=== PATIENT | male | born 1950 | race African-American/Black ===

== ENCOUNTER 2017-03-28 12:00 | Inpatient (IN) ==
[2017-03-28] MEDS ORDERED: GLUCAGON 1 MG VIAL IM PRN (17:11)
[2017-03-28] MEDS ORDERED: DEXTROSE 50% 25 GM/50 ML VIAL IV PRN (17:11)
[2017-03-28] MEDS: HEPARIN DRIP 25,000 UNITS/500 ML PREMIX IV SCH (18:01)
[2017-03-28 18:29] LABS: Partial Thromboplastin Time 32.2 SECS (0-40)
[2017-03-28] MEDS ORDERED: MECLIZINE 25 MG TABLET PO PRN (18:46)
--- NOTE | 2017-03-28 18:59 | XRay Report ---
XR chest 1V portable Indication: Preop respiratory evaluation. Chest one view: Heart size is upper limits normal, and mediastinal contour are normal. Lungs are hypoinflated but generally clear, except for minimal bibasilar atelectasis. Pleural spaces are clear. Bones are intact. Impression: Mild pulmonary hypoinflation with atelectasis. Borderline cardiomegaly. PROCEDURE INTERPRETED AT [facility] DEPARTMENT OF RADIOLOGY Final Report Signed by: Solo Herr M.D.
[2017-03-28] MEDS: MELOXICAM 7.5 MG TABLET PO SCH (21:21)
[2017-03-28] MEDS: INSULIN REGULAR 100 UNIT/ML SUBCUT SCH (21:21)
[2017-03-28] MEDS: CARVEDILOL 3.125 MG TABLET PO SCH (21:21)
--- NOTE | 2017-03-28 21:26 | Ultrasound Report ---
US venous doppler LE BI Indication: Shortness of breath. BILATERAL LOWER EXTREMITY VENOUS ULTRASOUND Comparison: None Findings: Graded grayscale compression, color Doppler and pulsed Doppler ultrasound evaluation of the venous structures performed. Normal compressibility, augmentation and color saturation is present throughout the left common femoral, superficial femoral, popliteal and proximal greater saphenous veins. Normal features are also present throughout the right common femoral vein and most of the right superficial femoral vein. In the distal superficial femoral vein there is eccentric thrombus present in the right popliteal vein is completely occluded. Impression: DVT distal right superficial femoral vein and popliteal vein. Comment: Painter discussed preliminary findings with nurse Lola Gonzalez at 0 hours. PROCEDURE INTERPRETED AT [facility] DEPARTMENT OF RADIOLOGY Final Report Signed by: Solo Herr M.D.
[2017-03-29 01:00] LABS: Basophils # 0.1 10*3/uL (0.0-0.2); Basophils % 0.6 % (0.0-0.8); Eosinophils # 0.3 10*3/uL (0.0-0.87); Eosinophils % 3.1 % (0.00-10.9); Hematocrit 38.8 VOL% (42.0-52.0); Immature Granulocytes % 0.5 %; Immature Granulocytes Absolute 0.04 #; Lymphocytes # 1.7 10*3/uL (1.4-4.0); Lymphocytes % 19.8 % (21.2-54.2); Mean Corpuscular HGB Conc 33.5 GM/DL (32-36); Mean Corpuscular Hemoglobin 31 PG (27-34); Mean Corpuscular Volume 91.1 FL (87-102); Mean Platelet Volume 8.8 FL (9.6-12.0); Monocytes # 1.1 10*3/uL (0.11-0.8); Monocytes % 13.3 % (1.7-12.7); Neutrophils # 5.3 10*3/uL (1.4-7.4); Neutrophils % 62.7 % (38.7-73.9); Platelet Count 220 T/CUMM (130-400); Red Blood Count 4.26 MC/CUMM (3.8-5.5); Red Cell Distribution Width 12.4 % (9.3-17.3); White Blood Count 8.4 T/CUMM (4-12)
[2017-03-29 02:09] LABS: Albumin 3.2 G/DL (3.4-5.0); Bilirubin,Total 0.5 MG/DL (0.2-1.0); Calcium 8.4 MG/DL (8.5-10.1); Potassium 4.1 MMOL/L (3.5-5.1); Total Protein 5.9 G/DL (6.4-8.3)
[2017-03-29] MEDS: INSULIN REGULAR 100 UNIT/ML SUBCUT SCH ×4 (08:06→21:04)
[2017-03-29] MEDS: INSULIN NPH/REGULAR 70/30 100 UNIT/ML SUBCUT SCH ×2 (08:38→17:34)
[2017-03-29] MEDS: LISINOPRIL 10 MG TABLET PO SCH (08:39)
[2017-03-29] MEDS: MELOXICAM 7.5 MG TABLET PO SCH ×2 (08:39→21:03)
[2017-03-29] MEDS: ASPIRIN CHEW 81 MG TABLET PO SCH (08:39)
[2017-03-29] MEDS: CARVEDILOL 3.125 MG TABLET PO SCH ×2 (08:39→21:03)
[2017-03-29] MEDS: PANTOPRAZOLE 20 MG TABLET PO SCH (08:39)
--- NOTE | 2017-03-29 08:50 | EKG Report ---
Stationary ECG Study [facility] Test Date: 03/29/2017 7:23:38 AM Pat Name: GRETEL TOMPKISN Department: Room: 110 Gender: M Press Manager: ROEL : 1950 Requested by: Justyn Manning Order Number: [id number] Reading MD: NYLA SOUZA Intervals [place] Rate: 81 P: 46 SC: 186 QRS: 10 QRSD: 100 T: 7 QT: 402 QTc: 439 Interpretive Statements SINUS RHYTHM NONSPECIFIC T-WAVE ABNORMALITY Electronically Signed On 03-30-17 08:08:00 CDT by NYLA SOUZA [email or web address]
--- NOTE | 2017-03-29 14:05 | Cardiothoracic History & Phys ---
Assessment and Plan - Time spent with patient Time spent with patient: Greater than 30 minutes (1) NSTEMI (non-ST elevated myocardial infarction) Status: Acute Assessment and plan: Risk Model and Variables - STS Adult Cardiac Surgery Database Version 2.81 RISK SCORES About the STS Risk Calculator Procedure: CAB Only Risk of Mortality: 2.748% Morbidity or Mortality: 34.97% Long Length of Stay: 18.977% Short Length of Stay: 18.124% Permanent Stroke: 2.094% Prolonged Ventilation: 25.048% DSW Infection: 2.297% Renal Failure: 16.673% Reoperation: 66-year-old male with non-ST elevation myocardial infarction. Risks benefits and alternatives of coronary artery bypass surgery was discussed with the patient and the family and they understand and they are willing to proceed. I transferred the patient here from [place] and I started him on heparin drip for his DVT as well as his non-ST elevation myocardial infarction. I am planning to do surgery on Friday, March 31, 2017. Current Visit: Yes History of Present Illness Chief complaint: NSTEMI History of present illness: Mr. Renner is a 66 year old male who has been having shortness of breath for the past few weeks and has been increasing. He denies any previous similar episodes. The patient had a cardiac cath at [place] showing severe multivessel coronary artery disease with Right coroanry artery completely occluded, LAD, RAMUS and Circ tight occlusion. The pt also was noted to have RLE DVT. I transferred the pt here to perform his CABG Home Medications Medication Instructions Recorded Confirmed Type Aspirin [Ecotrin] 81 mg PO DAILY 03/28/17 03/28/17 History Carvedilol [Carvedilol] 3.125 mg PO BID 03/28/17 03/28/17 History Hydrocodone/Acetaminophen 7.5 mg PO Q4H PRN 03/28/17 03/28/17 History [Hydrocodon-Acetaminoph 7.5-325] Insulin NPH/Regular 70/30 [HumuLIN 36 units SUBCUT QPM 03/28/17 03/28/17 History 70/30] Insulin NPH/Regular 70/30 [HumuLIN 46 units SUBCUT AC BREAKFAST 03/28/17 History 70/30] Lisinopril [Lisinopril] 10 mg PO DAILY 03/28/17 03/28/17 History Lovastatin [Lovastatin] 10 mg PO DAILY W/SUPPER 03/28/17 03/28/17 History Meclizine [Antivert] 25 mg PO DAILY PRN 03/28/17 03/28/17 History Meloxicam [Meloxicam] 7.5 mg PO BID 03/28/17 03/28/17 History Omeprazole 20 mg PO DAILY 03/28/17 03/28/17 History Rivaroxaban [Xarelto] 20 mg PO DAILY 03/28/17 03/28/17 History Allergies Allergy/AdvReac Type Severity Reaction Status Date / Time No Known Allergies Allergy Unverified 03/28/17 15:29 12 point system: reviewed and no additional remarkable complaints except as stated (HPI) Medical,Surgical,& Family Hx - Medical History Cardio: History of: CHF, CAD, Hypertension, PVD, Cardiovascular Problems Endocrine: History of: Diabetes Mellitus (IDDM) Musculoskeletal: History of: Amputation (half of Left foot) Hematology: History of: Clotting Problems (currrent blood clot Right leg 03/28/17 ) - Surgical History Cardiac Surgeries: Sugical HX of: Cardiac Catheterization, Cardiac Surgery - Family History Family History: Reports;: Family Diabetes (mother and sister) - Social History Smoking Status: Never smoker Cardiology Physical Exam - Constitutional Vitals: Vital Signs Temp Pulse Resp BP Pulse Ox 98.8 F 83 19 172/79 98 03/29/17 13:16 03/29/17 13:16 03/29/17 13:00 03/29/17 13:16 03/29/17 13:16 Intake and Output 03/28/17 03/29/17 03/29/17 22:59 06:59 14:59 Intake Total 240 / 240 301 / 301 1360 / 1360 Output Total 250 / 250 400 / 400 1100 / 1100 Balance -10 / -10 -99 / -99 260 / 260 Intake: IV 301 / 301 Heparin Drip 25,000 Units 301 / 301 /500 ml25,000 units In 500 ml @ 12 UNITS/KG/HR 24.603 mls/hr IV TITRATE LEXIS Rx#:[id number] Intake - Additional IV 240 / 240 1360 / 1360 Volume (mLs) Output: Urine 250 / 250 400 / 400 1100 / 1100 Other: Voiding Method Urinal Urinal Indwelling Catheter # Voids 0 1 # Bowel Movements 1 Weight 102.512 kg 104.372 kg General appearance: morbidly obese - Head Head exam: Present: normal inspection - Eye Eye exam: Present: EOMI Pupils: Present: BENSON - ENT ENT exam: Present: normal exam - Neck Neck exam: Present: normal inspection - Respiratory Respiratory exam: Present: clear to auscultation bilaterally - Cardiovascular Cardiovascular exam: Present: regular rate and rhythm - GI/Abdominal GI/Abdominal exam: Present: normal bowel sounds Result/EKG - Labs CBC & BMP: 03/29/17 00:51 03/29/17 00:51 Labs: Laboratory Results - last 24 hr 03/28/17 03/28/17 03/29/17 17:51 21:10 00:51 WBC 8.4 RBC 4.26 Hgb 13.0 L Hct 38.8 L MCV 91.1 MCH 31 MCHC 33.5 RDW 12.4 Plt Count 220 MPV 8.8 L Neut % (Auto) 62.7 Lymph % (Auto) 19.8 L [place] % (Auto) 13.3 H Eos % (Auto) 3.1 Baso % (Auto) 0.6 Neut # (Auto) 5.3 Lymph # (Auto) 1.7 [place] # (Auto) 1.1 H Eos # (Auto) 0.3 Baso # (Auto) 0.1 Immature Gran % 0.5 Nucleated RBC % 0.0 Immature Gran # 0.04 Nucleated RBCs # 0.00 INR 1.0 PT Patient/Control Mix 11.0 Circ Anticoag PTT 32.2 Sodium Potassium Chloride Carbon Dioxide Anion Gap BUN Creatinine GFR Calculation BUN/Creatinine Ratio Glucose POC Glucose 104 Calculated Osmolality Calcium Total Bilirubin AST ALT Alkaline Phosphatase Total Protein Albumin Globulin Albumin/Globulin Ratio 03/29/17 03/29/17 03/29/17 00:51 00:51 05:21 WBC RBC Hgb Hct MCV MCH MCHC RDW Plt Count MPV Neut % (Auto) Lymph % (Auto) [place] % (Auto) Eos % (Auto) Baso % (Auto) Neut # (Auto) Lymph # (Auto) [place] # (Auto) Eos # (Auto) Baso # (Auto) Immature Gran % Nucleated RBC % Immature Gran # Nucleated RBCs # INR PT Patient/Control Mix Circ Anticoag PTT 78.3 H D 88.6 H Sodium 136 Potassium 4.1 Chloride 104 Carbon Dioxide 24 Anion Gap 12.1 BUN 18 Creatinine 1.60 H GFR Calculation 68 BUN/Creatinine Ratio 11.00 Glucose 122 H POC Glucose Calculated Osmolality 274.0 Calcium 8.4 L Total Bilirubin 0.50 AST 26 ALT 24 Alkaline Phosphatase 60 Total Protein 5.9 L Albumin 3.2 L Globulin 2.7 Albumin/Globulin Ratio 1.1 03/29/17 03/29/17 03/29/17 07:45 11:17 12:06 WBC RBC Hgb Hct MCV MCH MCHC RDW Plt Count MPV Neut % (Auto) Lymph % (Auto) [place] % (Auto) Eos % (Auto) Baso % (Auto) Neut # (Auto) Lymph # (Auto) [place] # (Auto) Eos # (Auto) Baso # (Auto) Immature Gran % Nucleated RBC % Immature Gran # Nucleated RBCs # INR PT Patient/Control Mix Circ Anticoag PTT 75.9 H Sodium Potassium Chloride Carbon Dioxide Anion Gap BUN Creatinine GFR Calculation BUN/Creatinine Ratio Glucose POC Glucose 126 H 122 H Calculated Osmolality Calcium Total Bilirubin AST ALT Alkaline Phosphatase Total Protein Albumin Globulin Albumin/Globulin Ratio
[2017-03-29 15:39] LABS: Troponin I Only 0.031 NG/ML (0.00-0.045)
[2017-03-29] MEDS: HEPARIN DRIP 25,000 UNITS/500 ML PREMIX IV SCH ×2 (16:01→18:36)
[2017-03-29] MEDS: LOVASTATIN 20 MG TABLET PO SCH (17:49)
[2017-03-30] MEDS: INSULIN REGULAR 100 UNIT/ML SUBCUT SCH ×4 (08:31→22:03)
[2017-03-30] MEDS: INSULIN NPH/REGULAR 70/30 100 UNIT/ML SUBCUT SCH ×2 (09:42→17:39)
[2017-03-30] MEDS: ASPIRIN CHEW 81 MG TABLET PO SCH (09:42)
[2017-03-30] MEDS: CARVEDILOL 3.125 MG TABLET PO SCH ×2 (09:43→21:28)
[2017-03-30] MEDS: LISINOPRIL 10 MG TABLET PO SCH (09:43)
[2017-03-30] MEDS: PANTOPRAZOLE 20 MG TABLET PO SCH (09:43)
[2017-03-30] MEDS: MELOXICAM 7.5 MG TABLET PO SCH ×2 (09:47→21:27)
[2017-03-30] MEDS: CHLORHEXIDINE 0.12% ORAL RINSE 60 ML BOTTLE SWISH/SPIT SCH ×2 (09:48→21:29)
[2017-03-30] MEDS: HEPARIN DRIP 25,000 UNITS/500 ML PREMIX IV SCH (17:02)
[2017-03-30] MEDS: LOVASTATIN 20 MG TABLET PO SCH (17:07)
[2017-03-30] MEDS: CHLORHEXIDINE 4% SOLN 118 ML BOTTLE TOP SCH (20:14)
[2017-03-30] MEDS ORDERED: SODIUM CHLORIDE 0.9% 1,000 ML IV SCH (21:00)
[2017-03-31] MEDS: CHLORHEXIDINE 4% SOLN 118 ML BOTTLE TOP SCH ×3 (00:01→18:59)
[2017-03-31 03:34] LABS: ABG Base Excess -2.4 MMOL/L (-2.5-2.5); ABG HCO3 21.1 MMOL/L (20-26); ABG PCO2 32.7 MM HG (35-48); ABG PH 7.427 (7.35-7.45); ABG PO2 90.1 MM HG (80-95); ABG TCO2 22.1 MMOL/L (23-27); Pt O2 Delivery Device Room Air
[2017-03-31] MEDS ORDERED: PAPAVERINE 60 MG/2 ML VIAL ONE (04:40)
[2017-03-31] MEDS ORDERED: TISSUE ADHESIVE 1 EACH APPLICATOR TOP ONE (04:40)
[2017-03-31] MEDS ORDERED: VANCOMYCIN 1,000 MG VIAL ONE (04:40)
[2017-03-31] MEDS ORDERED: LORazepam 1 MG TABLET PO ONE (05:30)
[2017-03-31] MEDS ORDERED: FAMOTIDINE 20 MG TABLET PO ONE (05:30)
[2017-03-31] MEDS: LISINOPRIL 10 MG TABLET PO SCH ×2 (05:41→18:58)
[2017-03-31] MEDS: CARVEDILOL 3.125 MG TABLET PO SCH ×2 (05:41→18:59)
[2017-03-31] MEDS: CHLORHEXIDINE 0.12% ORAL RINSE 60 ML BOTTLE SWISH/SPIT SCH ×3 (05:45→21:15)
[2017-03-31] MEDS ORDERED: CEFUROXIME INJ 1,500 MG in SODIUM CHLORIDE 0.9% 100 ML IV ONE (06:00)
[2017-03-31] MEDS ORDERED: NITROGLYCERIN 50 MG/250 ML BOTTLE IV ONE (06:44)
[2017-03-31] MEDS ORDERED: PHENYLEPHRINE 20 MG/250 ML PREMIX IV ONE (06:44)
[2017-03-31] MEDS ORDERED: VECURONIUM 10 MG VIAL IV ONE (06:44)
[2017-03-31] MEDS ORDERED: AMINOCAPROIC ACID 5,000 MG/20 ML VIAL IV ONE (06:44)
[2017-03-31] MEDS ORDERED: LIDOCAINE 1% 5 ML VIAL ONE (06:44)
[2017-03-31] MEDS ORDERED: ETOMIDATE 20 MG/10 ML VIAL IV ONE (06:44)
[2017-03-31] MEDS ORDERED: POTASSIUM CHLORIDE RIDER 100 ML IV ONE (07:29)
[2017-03-31] MEDS ORDERED: PHENYLEPHRINE DRIP 0 MG/0 ML PREMIX IV ONE (07:29)
[2017-03-31] MEDS ORDERED: CALCIUM CHLORIDE 1,000 MG/10 ML SYRINGE IV ONE (07:29)
[2017-03-31] MEDS ORDERED: SODIUM BICARBONATE 50 MEQ/50 ML SYRINGE IV ONE ×2 (07:30→11:10)
[2017-03-31] MEDS ORDERED: INSULIN REGULAR DRIP 100 ML IV ONE (07:31)
[2017-03-31 07:51] LABS: ABG Base Excess -3.5 MMOL/L (-2.5-2.5); ABG HCO3 21.5 MMOL/L (20-26); ABG Oxygen Saturation 99.8 % (95-100); ABG PCO2 34.9 MM HG (35-48); ABG PH 7.385 (7.35-7.45); ABG TCO2 18.5 MMOL/L (23-27); Glucose Heart Surgery 156 MG/DL (74-106); Hematocrit Heart Surgery 37.5 PERCENT (42-52); Hemoglobin Heart Surgery 12.2 G/DL (14.0-18.0); PCO2 Patient Temp Arterial 34.9 MMHG; PH Patient Temp Arterial 7.385; Patient Temperature 37 CELCIUS; Potassium Heart/CVR 3.9 MMOL/L (3.5-5.1); Sodium Heart/CVR 135 MMOL/L (135-145)
[2017-03-31 07:55] LABS: Apearance,Urine CLEAR (Clear); Bilirubin,Urine Negative (Negative); Blood, Urine Small mg/dL (Negative); Glucose,Urine (UA) Negative (Negative); Ketones,Urine Negative (Negative); Mucus,Urine Occasional /LPF (Occasional); Nitrite,Urine Negative (Negative); Protein,Urine 100 MG/DL; RBC,Urine 2 /HPF (0-4); Squamous Epithelial Cell,Urine Occasional /HPF (0-10); Urine Color Yellow (Yellow); Urine Specific Gravity 1.013 (1.001-1.035); WBC,Urine 1 /HPF (0-6)
[2017-03-31 09:23] LABS: Hematocrit Heart Surgery 24.6 PERCENT (42-52); Hemoglobin Heart Surgery 7.9 G/DL (14.0-18.0); PCO2 Patient Temp Venous 35.7 MM HG; PH Patient Temp Venous 7.416; PO2 Patient Temp Venous 38.9 MM HG; Potassium Heart/CVR 4.9 MMOL/L (3.5-5.1); VBG Base Excess -1.1 MEQ/L (0-4); VBG HCO3 23.3 MEQ/L (24-28); VBG PCO2 41.3 MMHG (41-51); VBG PH 7.373; VBG PO2 47.8 MMHG (17-40)
[2017-03-31] MEDS ORDERED: INSULIN REGULAR 100 UNIT/ML ONE (09:35)
[2017-03-31 09:51] LABS: Hematocrit Heart Surgery 25.7 PERCENT (42-52); Hemoglobin Heart Surgery 8.3 G/DL (14.0-18.0); PCO2 Patient Temp Venous 31.9 MM HG; PH Patient Temp Venous 7.45; PO2 Patient Temp Venous 41.1 MM HG; Potassium Heart/CVR 4.2 MMOL/L (3.5-5.1); VBG Base Excess -1.2 MEQ/L (0-4); VBG HCO3 23.2 MEQ/L (24-28); VBG Oxygen Saturation 84.5 %; VBG PCO2 36.8 MMHG (41-51); VBG PH 7.407; VBG PO2 50.5 MMHG (17-40)
[2017-03-31 10:24] LABS: Hematocrit Heart Surgery 27.1 PERCENT (42-52); Hemoglobin Heart Surgery 8.7 G/DL (14.0-18.0); PCO2 Patient Temp Venous 34.2 MM HG; PH Patient Temp Venous 7.428; PO2 Patient Temp Venous 39.9 MM HG; Potassium Heart/CVR 4.6 MMOL/L (3.5-5.1); VBG Base Excess -1.3 MEQ/L (0-4); VBG Oxygen Saturation 78.2 %; VBG PCO2 35.8 MMHG (41-51); VBG PH 7.413; VBG PO2 42.8 MMHG (17-40)
[2017-03-31] MEDS ORDERED: HEPARIN 10,000 UNIT/10 ML VIAL ONE (11:10)
[2017-03-31] MEDS ORDERED: MAGNESIUM SULFATE 1 GM/2 ML VIAL ONE (11:10)
[2017-03-31] MEDS ORDERED: ALBUMIN 25% 25 GM/100 ML VIAL IV ONE (11:10)
[2017-03-31] MEDS ORDERED: DEXTROSE 5% KCL 20 MEQ 20 MEQ/1,000 ML BAG IV ONE (11:10)
[2017-03-31] MEDS ORDERED: methylPREDNISolone SOD SUC 1,000 MG/8 ML VIAL ONE (11:10)
[2017-03-31] MEDS ORDERED: PROTAMINE SULFATE 250 MG/25 ML VIAL IV ONE (11:10)
[2017-03-31] MEDS ORDERED: PROTAMINE SULFATE 50 MG/5 ML VIAL IV ONE (11:11)
[2017-03-31] MEDS ORDERED: MANNITOL 12.5 GM/50 ML VIAL IV ONE (11:11)
[2017-03-31] MEDS ORDERED: FUROSEMIDE 20 MG/2 ML VIAL ONE (11:11)
[2017-03-31 11:21] LABS: ABG Base Excess -4.4 MMOL/L (-2.5-2.5); ABG HCO3 20.8 MMOL/L (20-26); ABG Oxygen Saturation 99.5 % (95-100); ABG PCO2 39.3 MM HG (35-48); ABG PH 7.337 (7.35-7.45); ABG TCO2 19.2 MMOL/L (23-27); Glucose Heart Surgery 241 MG/DL (74-106); Hematocrit Heart Surgery 31.3 PERCENT (42-52); Hemoglobin Heart Surgery 10.1 G/DL (14.0-18.0); Ionized Calcium Arterial 1.18 MMOL/L (1.21-1.46); PCO2 Patient Temp Arterial 39.3 MMHG; PH Patient Temp Arterial 7.337; Patient Temperature 37 CELCIUS; Potassium Heart/CVR 3.9 MMOL/L (3.5-5.1); Sodium Heart/CVR 132 MMOL/L (135-145)
[2017-03-31] MEDS ORDERED: NITROPRUSSIDE 50 MG/2 ML VIAL ONE (12:13)
--- NOTE | 2017-03-31 12:18 | Operative Note ---
Date of procedure: 03/31/17 Pre-op diagnosis: Severe coronary artery disease Post-op diagnosis: same (Severe coronary artery disease) Procedure: Procedure: 1. Lindsey of left great saphenous vein 2. Lindsey of the left internal mammary artery 3. Institution of cardiopulmonary bypass 4. Coronary artery bypass graft x3, GEORGE to LAD, saphenous vein graft to the posterior descending artery, saphenous vein graft to the OM1 artery Details of the procedure: The patient was brought into the OR table and placed supine and general endotracheal anesthesia was induced without any problems. Timeout was performed. Antibiotics were given. The chest was prepped and draped in the fashion. Midline incision was made on the chest. The sternum was opened. Hemostasis was achieved. I dissected down the left internal mammary artery in its entirety from the first rib all the way down to the xiphisternum. I then inserted and angled chest tube to the left chest. After that, I turned my attention to opening the pericardium. I exposed the heart and aorta. I then started placing the pericardial stitches. Heparin was given. I then cannulating the proximal arch of the aorta. After that I cannulated the right atrium to the IVC. I then proceeded with preparing the mammary. I then made my pericardial window. Started the cardiopulmonary bypass. I inserted the cardioplegia needle. Cross-clamp was applied. Cardioplegia was given. The heart was arrested successfully. I then identified the posterior descending artery. Distal anastomosis was achieved between saphenous vein and the PDA with a 7-0 Prolene. It was tested and it was in good condition. I gave extra 200 of quadriplegia down the PDA graft as a know that his right coronary artery is completely occluded. I then moved my attention to the first obtuse marginal artery. It was diseased except for the distal segment. I identified that segment and the open-ended. This anastomosis was again achieved between second saphenous ein and the artery. This was tested and it was condition. I then started rewarming the patient and t distal anastomosis was achieved between the GEORGE and LAD. The LAD was diseased proximally and in the midsection. I made anastomosis to distal to that. I then removed the lamp and the heart recovered well to sinus rhythm. I then instituted the proximal anastomosis to the OM1 graft then to the PDA graft. Hemostasis was achieved. I weaned the patient from bypass in good condition. Protamine was given. Hemostasis was achieved. All counts were correct at the end of the procedure. The patient was decannulated successfully. Chest tube were inserted. The sternum was closed using wires. Subcutaneous tissues closed uterine using running PDS. 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 The patient was transferred to ICU in good condition. Anesthesia: CASI Surgeon / Physician: Justyn Manning Public Service Administrator: Tio Shields Estimated blood loss: other (CPB) Tourniquet Time (Minutes): 59 Condition: stable Disposition: ICU Results - Labs CBC & BMP: 03/31/17 11:18 03/29/17 00:51 Discharge Plan - Discharge Medications No Action Omeprazole 20 mg PO DAILY Rivaroxaban [Xarelto] 20 mg PO DAILY Meloxicam [Meloxicam] 7.5 mg PO BID Lovastatin [Lovastatin] 10 mg PO DAILY W/SUPPER Lisinopril [Lisinopril] 10 mg PO DAILY Hydrocodone/Acetaminophen [Hydrocodon-Acetaminoph 7.5-325] 7.5 mg PO Q4H PRN PRN Reason: Pain Mild To Moderate (1-7) Aspirin [Ecotrin] 81 mg PO DAILY Insulin NPH/Regular 70/30 [HumuLIN 70/30] 46 units SUBCUT AC BREAKFAST Insulin NPH/Regular 70/30 [HumuLIN 70/30] 36 units SUBCUT QPM Meclizine [Antivert] 25 mg PO DAILY PRN PRN Reason: Dizziness Carvedilol [Carvedilol] 3.125 mg PO BID - Follow Up or Referral - Forms/Instructions
[2017-03-31] MEDS ORDERED: SEVOFLURANE 1 UNIT/15 MINUTE INH ONE (12:22)
[2017-03-31] MEDS ORDERED: SODIUM CHLORIDE 0.9% 1,000 ML IV ONE (12:23)
[2017-03-31] MEDS ORDERED: SODIUM CHLORIDE 0.9% 500 ML IV ONE (12:23)
[2017-03-31] MEDS ORDERED: LACTATED RINGERS 1,000 ML IV ONE (12:23)
[2017-03-31] MEDS ORDERED: MIDAZOLAM 10 MG/2 ML VIAL ONE (12:23)
[2017-03-31] MEDS ORDERED: MIDAZOLAM 2 MG/2 ML VIAL ONE (12:23)
[2017-03-31] MEDS ORDERED: SODIUM CHLORIDE 0.9% 200 ML IV ONE (12:23)
[2017-03-31] MEDS ORDERED: POTASSIUM CHLORIDE RIDER 10 MEQ in PREMIX 1 EACH IV PRN (12:29)
[2017-03-31] MEDS ORDERED: INSULIN REGULAR 100 UNIT/ML IV PRN (12:29)
[2017-03-31] MEDS ORDERED: NITROGLYCERIN DRIP 50 MG/250 ML BOTTLE IV PRN (12:29)
[2017-03-31] MEDS ORDERED: ACETAMINOPHEN 650 MG SUPP RECTAL PRN (12:29)
[2017-03-31] MEDS ORDERED: CALCIUM CHLORIDE 1,000 MG/10 ML SYRINGE IV PRN (12:29)
[2017-03-31] MEDS ORDERED: MAGNESIUM SULF RIDER 2 GM in PREMIX 1 EACH IV PRN (12:29)
[2017-03-31] MEDS ORDERED: CHLORHEXIDINE 4% SOLN 118 ML BOTTLE TOP PRN (12:29)
[2017-03-31] MEDS ORDERED: SODIUM CHLORIDE 0.9% 250 ML IV PRN (12:29)
[2017-03-31] MEDS ORDERED: ONDANSETRON 4 MG/2 ML VIAL IV PRN (12:29)
[2017-03-31] MEDS ORDERED: DEXTROSE 50% 25 GM/50 ML VIAL IV PRN ×2 (12:29)
[2017-03-31] MEDS ORDERED: MIDAZOLAM 2 MG/2 ML VIAL IV PRN (12:29)
[2017-03-31] MEDS ORDERED: MAGNESIUM SULF RIDER 4 GM in PREMIX 1 EACH IV PRN (12:29)
[2017-03-31] MEDS ORDERED: INSULIN REGULAR DRIP 100 ML IV SCH (12:30)
[2017-03-31 12:33] LABS: ABG Base Excess -1.6 MMOL/L (-2.5-2.5); ABG Oxygen Saturation 95.9 % (95-100); ABG PCO2 33.7 MM HG (35-48); ABG PH 7.425 (7.35-7.45); ABG TCO2 19.8 MMOL/L (23-27); Glucose Heart Surgery 229 MG/DL (74-106); Hematocrit Heart Surgery 34.6 PERCENT (42-52); Hemoglobin Heart Surgery 11.2 G/DL (14.0-18.0); Potassium Heart/CVR 3.4 MMOL/L (3.5-5.1)
[2017-03-31 12:34] LABS: Basophils % 0.3 % (0.0-0.8); Eosinophils # 0.1 10*3/uL (0.0-0.87); Eosinophils % 1.5 % (0.00-10.9); Hematocrit 33.3 VOL% (42.0-52.0); Hemoglobin 11.5 GM/DL (14.0-18.0); Immature Granulocytes % 1.1 %; Lymphocytes # 0.7 10*3/uL (1.4-4.0); Lymphocytes % 7.6 % (21.2-54.2); Mean Corpuscular HGB Conc 34.5 GM/DL (32-36); Mean Corpuscular Hemoglobin 32 PG (27-34); Mean Corpuscular Volume 91.5 FL (87-102); Mean Platelet Volume 9.1 FL (9.6-12.0); Monocytes # 0.6 10*3/uL (0.11-0.8); Monocytes % 6.6 % (1.7-12.7); Neutrophils # 7.8 10*3/uL (1.4-7.4); Neutrophils % 82.9 % (38.7-73.9); Platelet Count 158 T/CUMM (130-400); Red Blood Count 3.64 MC/CUMM (3.8-5.5); Red Cell Distribution Width 12.4 % (9.3-17.3); White Blood Count 9.4 T/CUMM (4-12)
[2017-03-31 12:40] LABS: INR 1.3; PT Patient Result 13.4 SECS; Partial Thromboplastin Time 34.3 SECS (0-40)
--- NOTE | 2017-03-31 12:56 | XRay Report ---
XR chest 1V portable Indication: Line placement. Intubated. Chest one view: Comparison 03/28/2017. Patient has undergone median sternotomy. Right IJ central line terminates in SVC, endotracheal tube terminates 4 cm cephalad the renetta, and there are mediastinal and left basilar chest drains in place. Borderline cardiomegaly is unchanged. Mild bibasilar atelectasis noted. Lungs are otherwise clear. No pneumothorax seen. Impression: Lines and tubes as described. PROCEDURE INTERPRETED AT [facility] DEPARTMENT OF RADIOLOGY Final Report Signed by: Solo Herr M.D.
[2017-03-31] MEDS: SODIUM CHLORIDE 0.45% 1,000 ML IV SCH ×2 (12:58→12:59)
[2017-03-31 13:13] LABS: Albumin 3.1 G/DL (3.4-5.0); Bilirubin,Total 0.9 MG/DL (0.2-1.0); Calcium 9.2 MG/DL (8.5-10.1); Osmolality,Calculated 282.7 MOS/KG (273-304); Potassium 3.6 MMOL/L (3.5-5.1); Total Protein 5.4 G/DL (6.4-8.3)
[2017-03-31 13:14] LABS: Magnesium 2.2 MG/DL (1.8-2.4)
[2017-03-31] MEDS ORDERED: NITROPRUSSIDE 100 MG in DEXTROSE 5% 246 ML IV SCH (13:30)
[2017-03-31 14:01] LABS: Lactic Acid 1.7 MMOL/L (0.4-2.0)
[2017-03-31] MEDS: POTASSIUM CHLORIDE RIDER 20 MEQ in PREMIX 1 EACH IV PRN ×2 (14:09→14:10)
[2017-03-31] MEDS: DEXMEDETOMIDINE 400 MCG in SODIUM CHLORIDE 0.9% 96 ML IV SCH (14:12)
[2017-03-31] MEDS: ALBUMIN 5% 12.5 GM in PREMIX 1 EACH IV PRN (14:14)
[2017-03-31] MEDS: PANTOPRAZOLE 20 MG TABLET PO SCH (18:58)
[2017-03-31] MEDS: ASPIRIN CHEW 81 MG TABLET PO SCH (18:59)
[2017-03-31] MEDS: MELOXICAM 7.5 MG TABLET PO SCH (18:59)
[2017-03-31] MEDS: INSULIN REGULAR 100 UNIT/ML SUBCUT SCH (19:00)
[2017-03-31] MEDS: INSULIN NPH/REGULAR 70/30 100 UNIT/ML SUBCUT SCH (19:00)
[2017-03-31] MEDS: CEFUROXIME INJ 1,500 MG in SODIUM CHLORIDE 0.9% 100 ML IV SCH (19:33)
[2017-03-31] MEDS: MORPHINE 2 MG/1 ML SYRINGE IV PRN (19:42)
[2017-03-31] MEDS: MORPHINE 10 MG/1 ML VIAL IV PRN (21:13)
[2017-04-01] MEDS: DEXMEDETOMIDINE 400 MCG in SODIUM CHLORIDE 0.9% 96 ML IV SCH (00:51)
[2017-04-01] MEDS: SODIUM CHLORIDE 0.45% 1,000 ML IV SCH ×2 (03:00→08:50)
[2017-04-01 03:52] LABS: Basophils % 0.1 % (0.0-0.8); Hematocrit 30.7 VOL% (42.0-52.0); Hemoglobin 10.4 GM/DL (14.0-18.0); Immature Granulocytes % 0.6 %; Immature Granulocytes Absolute 0.08 #; Lymphocytes # 0.7 10*3/uL (1.4-4.0); Lymphocytes % 5.6 % (21.2-54.2); Mean Corpuscular HGB Conc 33.9 GM/DL (32-36); Mean Corpuscular Hemoglobin 31 PG (27-34); Mean Corpuscular Volume 91.6 FL (87-102); Mean Platelet Volume 9.7 FL (9.6-12.0); Monocytes % 7.9 % (1.7-12.7); Neutrophils # 11.3 10*3/uL (1.4-7.4); Neutrophils % 85.8 % (38.7-73.9); Platelet Count 161 T/CUMM (130-400); Red Blood Count 3.35 MC/CUMM (3.8-5.5); Red Cell Distribution Width 12.4 % (9.3-17.3); White Blood Count 13.2 T/CUMM (4-12)
[2017-04-01 04:02] LABS: Calcium 8.1 MG/DL (8.5-10.1); Magnesium 2.2 MG/DL (1.8-2.4); Potassium 4.4 MMOL/L (3.5-5.1)
--- NOTE | 2017-04-01 04:24 | Anesthesia Procedures ---
Anesthesia Procedures - Arterial Line Consent obtained arterial line: written consent Time out performed arterial line: Yes Size (Gauge): 20 Technique used arterial line: guide wire technique Post-Procedure: line sutured into place Patient tolerated procedure arterial line: well, no complications Complications art line: none Site: right
--- NOTE | 2017-04-01 04:24 | Anesthesia Procedures ---
Anesthesia Procedures - Central Venous Insert Monitors Applied: pulse oximetry, EKG, BP cuff, oxygen via MSBT: pulse oximetry, EKG, BP cuff, oxygen via Procedure: after sterile technique was performed as outlined above, , ultrasound guidance was used to identify vessel, 1.5 % lidocaine used to numb skin, 18G introducer needle was passed into vessel under direct visualizatio, triple lumen catheter was passed over guidewire without difficulty, catheter sutured into place and the ports flushed with NS/hepflush, sterlie dressing applied including the antibiotic disc, vital signs were stable throughout procedure, no apparent complications were noted, CXR to be obtained and read Ultrasound used: identify patency vessel, visualize needle entry to vessel Vein Cannulated: right internal juglar
[2017-04-01 04:41] LABS: Atypical Lymphocytes Few; Band Neutrophils 6 % (0-10); Lymphocytes 10 % (20-55); Myelocytes 2 %; Platelet Estimate Normal; Segmented Neutrophils 77 % (50-85); Total Cells Counted 100
[2017-04-01 05:01] LABS: ABG Base Excess -4.4 MMOL/L (-2.5-2.5); ABG HCO3 20.8 MMOL/L (20-26); ABG Oxygen Saturation 97.6 % (95-100); ABG PCO2 33.2 MM HG (35-48); ABG PH 7.386 (7.35-7.45); ABG PO2 98.8 MM HG (80-95); Glucose Heart Surgery 121 MG/DL (74-106); Hematocrit Heart Surgery 32.4 PERCENT (42-52); Hemoglobin Heart Surgery 10.5 G/DL (14.0-18.0); Potassium Heart/CVR 4.3 MMOL/L (3.5-5.1)
[2017-04-01] MEDS: MORPHINE 2 MG/1 ML SYRINGE IV PRN (06:47)
[2017-04-01] MEDS: ALBUMIN 5% 12.5 GM in PREMIX 1 EACH IV PRN ×3 (07:42→09:56)
[2017-04-01 08:27] LABS: ABG Base Excess -5.6 MMOL/L (-2.5-2.5); ABG HCO3 19.8 MMOL/L (20-26); ABG Oxygen Saturation 97.2 % (95-100); ABG PCO2 34.2 MM HG (35-48); ABG PH 7.358 (7.35-7.45); ABG PO2 96.2 MM HG (80-95); ABG TCO2 17.6 MMOL/L (23-27); Glucose Heart Surgery 103 MG/DL (74-106); Hematocrit Heart Surgery 30.2 PERCENT (42-52); Hemoglobin Heart Surgery 9.8 G/DL (14.0-18.0); Potassium Heart/CVR 4.3 MMOL/L (3.5-5.1)
[2017-04-01] MEDS: CEFUROXIME INJ 1,500 MG in SODIUM CHLORIDE 0.9% 100 ML IV SCH ×2 (08:41→20:27)
[2017-04-01] MEDS: FUROSEMIDE 40 MG TABLET PO SCH (08:41)
[2017-04-01] MEDS: ASPIRIN EC 325 MG TABLET PO SCH (08:42)
[2017-04-01] MEDS: CHLORHEXIDINE 0.12% ORAL RINSE 60 ML BOTTLE SWISH/SPIT SCH ×2 (08:44→22:00)
--- NOTE | 2017-04-01 09:52 | Cardiothoracic Progress Note ---
Assessment and Plan (1) NSTEMI (non-ST elevated myocardial infarction) Status: Acute Assessment and plan: 66-year-old male one day status post CABG. The patient has been doing very well. He was extubated earlier today and he is on nasal cannula. He is alert oriented 3. His hemodynamics are stable. We will start aspirin, statin, Lasix , we will get him out of bed and clear liquid diet. We will transfer him to telemetry later on today. Current Visit: Yes Exam (Progress Note) - Constitutional Vitals: Period Temp Pulse Resp BP Sys/Bales Pulse Ox Last 24 Hr 96.9 F-99.5 F 71-97 10-42 88-170/46-93 94-100 Result/EKG - Labs CBC & BMP: 04/01/17 03:32 04/01/17 03:32 Labs: Laboratory Results - last 24 hr 03/30/17 03/31/17 03/31/17 04:46 09:45 10:20 WBC RBC Hgb Hct MCV MCH MCHC RDW Plt Count MPV Neut % (Auto) Lymph % (Auto) [place] % (Auto) Eos % (Auto) Baso % (Auto) Neut # (Auto) Lymph # (Auto) [place] # (Auto) Eos # (Auto) Baso # (Auto) Total Counted Immature Gran % Nucleated RBC % Immature Gran # Segmented Neutrophils Band Neutrophils Lymphocytes Monocytes Myelocytes Nucleated RBCs # Atypical Lymphocytes Platelet Estimate Pappenheimer Bodies INR PT Patient/Control Mix Circ Anticoag PTT Patient Temperature 34 36 ABG pH ABG pH at Pt Temp 7.450 7.428 ABG pCO2 ABG pCO2 at Pt Temp 31.9 34.2 ABG pO2 ABG pO2 at Pt Temp 41.1 39.9 ABG HCO3 ABG Total CO2 ABG O2 Saturation ABG Base Excess ABG Sodium 128 L 129 L VBG pH 7.407 7.413 VBG pCO2 36.8 L 35.8 L VBG pO2 50.5 H 42.8 H VBG HCO3 23.2 L 23.0 L VBG Total CO2 21.6 21.2 VBG O2 Saturation 84.5 78.2 VBG Base Excess -1.2 L -1.3 L Hemoglobin 8.3 L 8.7 L Hematocrit 25.7 L 27.1 L Potassium 4.2 4.6 Glucose 330 H 295 H Ionized Calcium FiO2 80.00 80.00 Sodium Chloride Carbon Dioxide Anion Gap BUN Creatinine GFR Calculation BUN/Creatinine Ratio POC Glucose Calculated Osmolality Lactic Acid Calcium Venous Ioniz Calcium 0.97 L 1.00 L Magnesium Total Bilirubin AST ALT Alkaline Phosphatase Total Protein Albumin Globulin Albumin/Globulin Ratio Blood Type B POSITIVE Antibody Screen Negative Crossmatch See Detail 03/31/17 03/31/17 03/31/17 11:18 11:18 12:20 WBC RBC Hgb Hct MCV MCH MCHC RDW Plt Count 131 MPV Neut % (Auto) Lymph % (Auto) [place] % (Auto) Eos % (Auto) Baso % (Auto) Neut # (Auto) Lymph # (Auto) [place] # (Auto) Eos # (Auto) Baso # (Auto) Total Counted Immature Gran % Nucleated RBC % Immature Gran # Segmented Neutrophils Band Neutrophils Lymphocytes Monocytes Myelocytes Nucleated RBCs # Atypical Lymphocytes Platelet Estimate Pappenheimer Bodies INR PT Patient/Control Mix Circ Anticoag PTT Patient Temperature 37 ABG pH 7.337 L ABG pH at Pt Temp 7.337 ABG pCO2 39.3 ABG pCO2 at Pt Temp 39.3 ABG pO2 159.0 H ABG pO2 at Pt Temp 159.0 ABG HCO3 20.8 ABG Total CO2 19.2 L ABG O2 Saturation 99.5 ABG Base Excess -4.4 L ABG Sodium 132 L VBG pH VBG pCO2 VBG pO2 VBG HCO3 VBG Total CO2 VBG O2 Saturation VBG Base Excess Hemoglobin 10.1 L Hematocrit 31.3 L Potassium 3.9 3.6 Glucose 241 H 201 H Ionized Calcium 1.18 L FiO2 Sodium 138 Chloride 104 Carbon Dioxide 23 Anion Gap 14.6 BUN 18 Creatinine 1.70 H GFR Calculation 64 BUN/Creatinine Ratio 10.00 POC Glucose Calculated Osmolality 282.7 Lactic Acid Calcium 9.2 Venous Ioniz Calcium Magnesium Total Bilirubin 0.90 AST 59 H ALT 30 Alkaline Phosphatase 50 Total Protein 5.4 L Albumin 3.1 L Globulin 2.3 Albumin/Globulin Ratio 1.3 Blood Type Antibody Screen Crossmatch 03/31/17 03/31/17 03/31/17 12:20 12:20 12:33 WBC 9.4 RBC 3.64 L Hgb 11.5 L Hct 33.3 L MCV 91.5 MCH 32 MCHC 34.5 RDW 12.4 Plt Count 158 D MPV 9.1 L Neut % (Auto) 82.9 H Lymph % (Auto) 7.6 L [place]wood % (Auto) 6.6 Eos % (Auto) 1.5 Baso % (Auto) 0.3 Neut # (Auto) 7.8 H Lymph # (Auto) 0.7 L [place] # (Auto) 0.6 Eos # (Auto) 0.1 Baso # (Auto) 0.0 Total Counted Immature Gran % 1.1 Nucleated RBC % 0.0 Immature Gran # 0.10 Segmented Neutrophils Band Neutrophils Lymphocytes Monocytes Myelocytes Nucleated RBCs # 0.00 Atypical Lymphocytes Platelet Estimate Pappenheimer Bodies INR PT Patient/Control Mix Circ Anticoag PTT Patient Temperature ABG pH 7.425 ABG pH at Pt Temp ABG pCO2 33.7 L ABG pCO2 at Pt Temp ABG pO2 80.0 ABG pO2 at Pt Temp ABG HCO3 23.0 ABG Total CO2 19.8 L ABG O2 Saturation 95.9 ABG Base Excess -1.6 ABG Sodium VBG pH VBG pCO2 VBG pO2 VBG HCO3 VBG Total CO2 VBG O2 Saturation VBG Base Excess Hemoglobin 11.2 L Hematocrit 34.6 L Potassium 3.4 L Glucose 229 H Ionized Calcium FiO2 Sodium Chloride Carbon Dioxide Anion Gap BUN Creatinine GFR Calculation BUN/Creatinine Ratio POC Glucose Calculated Osmolality Lactic Acid 1.7 Calcium Venous Ioniz Calcium Magnesium 2.2 Total Bilirubin AST ALT Alkaline Phosphatase Total Protein Albumin Globulin Albumin/Globulin Ratio Blood Type Antibody Screen Crossmatch 03/31/17 03/31/17 03/31/17 12:33 13:12 14:04 WBC RBC Hgb Hct MCV MCH MCHC RDW Plt Count MPV Neut % (Auto) Lymph % (Auto) [place] % (Auto) Eos % (Auto) Baso % (Auto) Neut # (Auto) Lymph # (Auto) [place] # (Auto) Eos # (Auto) Baso # (Auto) Total Counted Immature Gran % Nucleated RBC % Immature Gran # Segmented Neutrophils Band Neutrophils Lymphocytes Monocytes Myelocytes Nucleated RBCs # Atypical Lymphocytes Platelet Estimate Pappenheimer Bodies INR 1.3 PT Patient/Control Mix 13.4 D Circ Anticoag PTT 34.3 Patient Temperature ABG pH ABG pH at Pt Temp ABG pCO2 ABG pCO2 at Pt Temp ABG pO2 ABG pO2 at Pt Temp ABG HCO3 ABG Total CO2 ABG O2 Saturation ABG Base Excess ABG Sodium VBG pH VBG pCO2 VBG pO2 VBG HCO3 VBG Total CO2 VBG O2 Saturation VBG Base Excess Hemoglobin Hematocrit Potassium Glucose Ionized Calcium FiO2 Sodium Chloride Carbon Dioxide Anion Gap BUN Creatinine GFR Calculation BUN/Creatinine Ratio POC Glucose 236 H 233 H Calculated Osmolality Lactic Acid Calcium Venous Ioniz Calcium Magnesium Total Bilirubin AST ALT Alkaline Phosphatase Total Protein Albumin Globulin Albumin/Globulin Ratio Blood Type Antibody Screen Crossmatch 03/31/17 03/31/17 03/31/17 15:05 16:06 17:16 WBC RBC Hgb Hct MCV MCH MCHC RDW Plt Count MPV Neut % (Auto) Lymph % (Auto) [place] % (Auto) Eos % (Auto) Baso % (Auto) Neut # (Auto) Lymph # (Auto) [place] # (Auto) Eos # (Auto) Baso # (Auto) Total Counted Immature Gran % Nucleated RBC % Immature Gran # Segmented Neutrophils Band Neutrophils Lymphocytes Monocytes Myelocytes Nucleated RBCs # Atypical Lymphocytes Platelet Estimate Pappenheimer Bodies INR PT Patient/Control Mix Circ Anticoag PTT Patient Temperature ABG pH ABG pH at Pt Temp ABG pCO2 ABG pCO2 at Pt Temp ABG pO2 ABG pO2 at Pt Temp ABG HCO3 ABG Total CO2 ABG O2 Saturation ABG Base Excess ABG Sodium VBG pH VBG pCO2 VBG pO2 VBG HCO3 VBG Total CO2 VBG O2 Saturation VBG Base Excess Hemoglobin Hematocrit Potassium Glucose Ionized Calcium FiO2 Sodium Chloride Carbon Dioxide Anion Gap BUN Creatinine GFR Calculation BUN/Creatinine Ratio POC Glucose 141 H 109 H 136 H Calculated Osmolality Lactic Acid Calcium Venous Ioniz Calcium Magnesium Total Bilirubin AST ALT Alkaline Phosphatase Total Protein Albumin Globulin Albumin/Globulin Ratio Blood Type Antibody Screen Crossmatch 03/31/17 03/31/17 03/31/17 18:04 19:12 20:28 WBC RBC Hgb Hct MCV MCH MCHC RDW Plt Count MPV Neut % (Auto) Lymph % (Auto) [place] % (Auto) Eos % (Auto) Baso % (Auto) Neut # (Auto) Lymph # (Auto) [place] # (Auto) Eos # (Auto) Baso # (Auto) Total Counted Immature Gran % Nucleated RBC % Immature Gran # Segmented Neutrophils Band Neutrophils Lymphocytes Monocytes Myelocytes Nucleated RBCs # Atypical Lymphocytes Platelet Estimate Pappenheimer Bodies INR PT Patient/Control Mix Circ Anticoag PTT Patient Temperature ABG pH ABG pH at Pt Temp ABG pCO2 ABG pCO2 at Pt Temp ABG pO2 ABG pO2 at Pt Temp ABG HCO3 ABG Total CO2 ABG O2 Saturation ABG Base Excess ABG Sodium VBG pH VBG pCO2 VBG pO2 VBG HCO3 VBG Total CO2 VBG O2 Saturation VBG Base Excess Hemoglobin Hematocrit Potassium Glucose Ionized Calcium FiO2 Sodium Chloride Carbon Dioxide Anion Gap BUN Creatinine GFR Calculation BUN/Creatinine Ratio POC Glucose 141 H 118 H 116 H Calculated Osmolality Lactic Acid Calcium Venous Ioniz Calcium Magnesium Total Bilirubin AST ALT Alkaline Phosphatase Total Protein Albumin Globulin Albumin/Globulin Ratio Blood Type Antibody Screen Crossmatch 03/31/17 03/31/17 03/31/17 21:40 22:24 23:34 WBC RBC Hgb Hct MCV MCH MCHC RDW Plt Count MPV Neut % (Auto) Lymph % (Auto) [place] % (Auto) Eos % (Auto) Baso % (Auto) Neut # (Auto) Lymph # (Auto) [place] # (Auto) Eos # (Auto) Baso # (Auto) Total Counted Immature Gran % Nucleated RBC % Immature Gran # Segmented Neutrophils Band Neutrophils Lymphocytes Monocytes Myelocytes Nucleated RBCs # Atypical Lymphocytes Platelet Estimate Pappenheimer Bodies INR PT Patient/Control Mix Circ Anticoag PTT Patient Temperature ABG pH ABG pH at Pt Temp ABG pCO2 ABG pCO2 at Pt Temp ABG pO2 ABG pO2 at Pt Temp ABG HCO3 ABG Total CO2 ABG O2 Saturation ABG Base Excess ABG Sodium VBG pH VBG pCO2 VBG pO2 VBG HCO3 VBG Total CO2 VBG O2 Saturation VBG Base Excess Hemoglobin Hematocrit Potassium Glucose Ionized Calcium FiO2 Sodium Chloride Carbon Dioxide Anion Gap BUN Creatinine GFR Calculation BUN/Creatinine Ratio POC Glucose 85 119 H 125 H Calculated Osmolality Lactic Acid Calcium Venous Ioniz Calcium Magnesium Total Bilirubin AST ALT Alkaline Phosphatase Total Protein Albumin Globulin Albumin/Globulin Ratio Blood Type Antibody Screen Crossmatch 04/01/17 04/01/17 04/01/17 00:45 01:41 02:57 WBC RBC Hgb Hct MCV MCH MCHC RDW Plt Count MPV Neut % (Auto) Lymph % (Auto) [place] % (Auto) Eos % (Auto) Baso % (Auto) Neut # (Auto) Lymph # (Auto) [place] # (Auto) Eos # (Auto) Baso # (Auto) Total Counted Immature Gran % Nucleated RBC % Immature Gran # Segmented Neutrophils Band Neutrophils Lymphocytes Monocytes Myelocytes Nucleated RBCs # Atypical Lymphocytes Platelet Estimate Pappenheimer Bodies INR PT Patient/Control Mix Circ Anticoag PTT Patient Temperature ABG pH ABG pH at Pt Temp ABG pCO2 ABG pCO2 at Pt Temp ABG pO2 ABG pO2 at Pt Temp ABG HCO3 ABG Total CO2 ABG O2 Saturation ABG Base Excess ABG Sodium VBG pH VBG pCO2 VBG pO2 VBG HCO3 VBG Total CO2 VBG O2 Saturation VBG Base Excess Hemoglobin Hematocrit Potassium Glucose Ionized Calcium FiO2 Sodium Chloride Carbon Dioxide Anion Gap BUN Creatinine GFR Calculation BUN/Creatinine Ratio POC Glucose 101 122 H 145 H Calculated Osmolality Lactic Acid Calcium Venous Ioniz Calcium Magnesium Total Bilirubin AST ALT Alkaline Phosphatase Total Protein Albumin Globulin Albumin/Globulin Ratio Blood Type Antibody Screen Crossmatch 04/01/17 04/01/17 04/01/17 03:32 03:32 04:36 WBC 13.2 H D RBC 3.35 L Hgb 10.4 L Hct 30.7 L MCV 91.6 MCH 31 MCHC 33.9 RDW 12.4 Plt Count 161 MPV 9.7 Neut % (Auto) 85.8 H Lymph % (Auto) 5.6 L [place] % (Auto) 7.9 Eos % (Auto) 0.0 Baso % (Auto) 0.1 Neut # (Auto) 11.3 H Lymph # (Auto) 0.7 L [place] # (Auto) 1.0 H Eos # (Auto) 0.0 Baso # (Auto) 0.0 Total Counted 100 Immature Gran % 0.6 Nucleated RBC % 0.0 Immature Gran # 0.08 Segmented Neutrophils 77 Band Neutrophils 6 Lymphocytes 10 L Monocytes 5 Myelocytes 2 Nucleated RBCs # 0.00 Atypical Lymphocytes Few Platelet Estimate Normal Pappenheimer Bodies Surgeon/President INR PT Patient/Control Mix Circ Anticoag PTT Patient Temperature ABG pH ABG pH at Pt Temp ABG pCO2 ABG pCO2 at Pt Temp ABG pO2 ABG pO2 at Pt Temp ABG HCO3 ABG Total CO2 ABG O2 Saturation ABG Base Excess ABG Sodium VBG pH VBG pCO2 VBG pO2 VBG HCO3 VBG Total CO2 VBG O2 Saturation VBG Base Excess Hemoglobin Hematocrit Potassium 4.4 Glucose 113 H Ionized Calcium FiO2 Sodium 136 Chloride 106 Carbon Dioxide 22 Anion Gap 12.4 BUN 25 H Creatinine 1.80 H GFR Calculation 60 BUN/Creatinine Ratio 13.00 POC Glucose 132 H Calculated Osmolality 276.0 Lactic Acid Calcium 8.1 L Venous Ioniz Calcium Magnesium 2.2 Total Bilirubin AST ALT Alkaline Phosphatase Total Protein Albumin Globulin Albumin/Globulin Ratio Blood Type Antibody Screen Crossmatch 04/01/17 04/01/17 04/01/17 04:54 05:20 06:22 WBC RBC Hgb Hct MCV MCH MCHC RDW Plt Count MPV Neut % (Auto) Lymph % (Auto) [place] % (Auto) Eos % (Auto) Baso % (Auto) Neut # (Auto) Lymph # (Auto) [place] # (Auto) Eos # (Auto) Baso # (Auto) Total Counted Immature Gran % Nucleated RBC % Immature Gran # Segmented Neutrophils Band Neutrophils Lymphocytes Monocytes Myelocytes Nucleated RBCs # Atypical Lymphocytes Platelet Estimate Pappenheimer Bodies INR PT Patient/Control Mix Circ Anticoag PTT Patient Temperature ABG pH 7.386 ABG pH at Pt Temp ABG pCO2 33.2 L ABG pCO2 at Pt Temp ABG pO2 98.8 H ABG pO2 at Pt Temp ABG HCO3 20.8 ABG Total CO2 18.0 L ABG O2 Saturation 97.6 ABG Base Excess -4.4 L ABG Sodium VBG pH VBG pCO2 VBG pO2 VBG HCO3 VBG Total CO2 VBG O2 Saturation VBG Base Excess Hemoglobin 10.5 L Hematocrit 32.4 L Potassium 4.3 Glucose 121 H Ionized Calcium FiO2 Sodium Chloride Carbon Dioxide Anion Gap BUN Creatinine GFR Calculation BUN/Creatinine Ratio POC Glucose 142 H 146 H Calculated Osmolality Lactic Acid Calcium Venous Ioniz Calcium Magnesium Total Bilirubin AST ALT Alkaline Phosphatase Total Protein Albumin Globulin Albumin/Globulin Ratio Blood Type Antibody Screen Crossmatch 04/01/17 08:00 WBC RBC Hgb Hct MCV MCH MCHC RDW Plt Count MPV Neut % (Auto) Lymph % (Auto) [place] % (Auto) Eos % (Auto) Baso % (Auto) Neut # (Auto) Lymph # (Auto) [place] # (Auto) Eos # (Auto) Baso # (Auto) Total Counted Immature Gran % Nucleated RBC % Immature Gran # Segmented Neutrophils Band Neutrophils Lymphocytes Monocytes Myelocytes Nucleated RBCs # Atypical Lymphocytes Platelet Estimate Pappenheimer Bodies INR PT Patient/Control Mix Circ Anticoag PTT Patient Temperature ABG pH 7.358 ABG pH at Pt Temp ABG pCO2 34.2 L ABG pCO2 at Pt Temp ABG pO2 96.2 H ABG pO2 at Pt Temp ABG HCO3 19.8 L ABG Total CO2 17.6 L ABG O2 Saturation 97.2 ABG Base Excess -5.6 L ABG Sodium VBG pH VBG pCO2 VBG pO2 VBG HCO3 VBG Total CO2 VBG O2 Saturation VBG Base Excess Hemoglobin 9.8 L Hematocrit 30.2 L Potassium 4.3 Glucose 103 Ionized Calcium FiO2 Sodium Chloride Carbon Dioxide Anion Gap BUN Creatinine GFR Calculation BUN/Creatinine Ratio POC Glucose Calculated Osmolality Lactic Acid Calcium Venous Ioniz Calcium Magnesium Total Bilirubin AST ALT Alkaline Phosphatase Total Protein Albumin Globulin Albumin/Globulin Ratio Blood Type Antibody Screen Crossmatch Quality Measures - VTE Contraindication to Pharmacological VTE Prophylaxis: Active Bleeding
[2017-04-01] MEDS ORDERED: INSULIN REGULAR 100 UNIT/ML SUBCUT SCH (10:00)
[2017-04-01] MEDS ORDERED: SODIUM CHLORIDE 0.45% 1,000 ML IV SCH (10:00)
--- NOTE | 2017-04-01 10:01 | XRay Report ---
Portable chest Date: 04/01/2017 Clinical history: Postop, evaluate for pneumothorax Comparison: 03/31/2017 Technique: Portable AP sitting chest Findings: The heart remains minimally enlarged with recent median sternotomy. The supportive devices are stable in position. No pneumothorax with residual atelectasis/edema at the lung bases and small left pleural effusion. Impression: Recent median sternotomy with no significant pneumothorax. The supportive devices are in satisfactory position with residual atelectasis/edema at the lung bases and small pleural effusions. PROCEDURE INTERPRETED AT [facility] DEPARTMENT OF RADIOLOGY Final Report Signed by: Dr. Jalyn Adams
--- NOTE | 2017-04-01 10:03 | EKG Report ---
Stationary ECG Study [facility] Test Date: 04/01/2017 10:04:14 AM Pat Name: GRETEL TOMPKINS Department: Room: 104 Gender: M Software Applications Specialist: ROEL : 1950 Requested by: Justyn Manning Order Number: [id number] Reading MD: BIB CROCKER Intervals [place] Rate: 98 P: 50 NV: 152 QRS: -11 QRSD: 94 T: 10 QT: 381 QTc: 436 Interpretive Statements SINUS RHYTHM Electronically Signed On 04-01-17 10:14:36 CDT by BIB CROCKER [email or web address]
[2017-04-01] MEDS: MORPHINE 10 MG/1 ML VIAL IV PRN ×2 (10:17→12:56)
[2017-04-01] MEDS ORDERED: METOPROLOL TARTRATE 5 MG/5 ML VIAL IV ONE (10:29)
[2017-04-01] MEDS ORDERED: MECLIZINE 25 MG TABLET PO PRN (11:37)
[2017-04-01] MEDS ORDERED: LACTATED RINGERS 500 ML IV ONE ×3 (12:41→20:54)
[2017-04-01] MEDS: INSULIN REGULAR 100 UNIT/ML SUBCUT SCH ×4 (13:00→20:27)
[2017-04-01] MEDS ORDERED: ATORVASTATIN 40 MG TABLET PO SCH (21:00)
[2017-04-01] MEDS ORDERED: PHENYLEPHRINE DRIP 40 MG/250 ML PREMIX IV ONE ×2 (21:35→21:36)
[2017-04-01] MEDS ORDERED: ALBUMIN 5% 25 GM in PREMIX 1 EACH IV ONE (21:42)
[2017-04-01 21:59] LABS: Basophils % 0.1 % (0.0-0.8); Hemoglobin 9.2 GM/DL (14.0-18.0); Immature Granulocytes % 1.1 %; Lymphocytes # 0.8 10*3/uL (1.4-4.0); Lymphocytes % 4.4 % (21.2-54.2); Mean Corpuscular HGB Conc 34.1 GM/DL (32-36); Mean Corpuscular Hemoglobin 32 PG (27-34); Mean Corpuscular Volume 93.4 FL (87-102); Mean Platelet Volume 9.8 FL (9.6-12.0); Monocytes # 2.4 10*3/uL (0.11-0.8); Monocytes % 13.4 % (1.7-12.7); Neutrophils # 14.7 10*3/uL (1.4-7.4); Platelet Count 188 T/CUMM (130-400); Red Blood Count 2.89 MC/CUMM (3.8-5.5); Red Cell Distribution Width 12.9 % (9.3-17.3); White Blood Count 18.2 T/CUMM (4-12)
[2017-04-01 21:59] LABS: ABG Base Excess -10.5 MMOL/L (-2.5-2.5); ABG HCO3 16.1 MMOL/L (20-26); ABG Oxygen Saturation 98.2 % (95-100); ABG PCO2 22.4 MM HG (35-48); Allen Test Positive
[2017-04-01] MEDS: MELOXICAM 7.5 MG TABLET PO SCH (22:00)
[2017-04-01] MEDS ORDERED: PHENYLEPHRINE DRIP 40 MG/250 ML PREMIX IV SCH (22:00)
[2017-04-01] MEDS: METOPROLOL TARTRATE 25 MG TABLET PO SCH (22:00)
[2017-04-01 22:17] LABS: Calcium 7.5 MG/DL (8.5-10.1); Potassium 5.1 MMOL/L (3.5-5.1)
[2017-04-01 22:19] LABS: Band Neutrophils 4 % (0-10); Lymphocytes 3 % (20-55); Myelocytes 1 %; Segmented Neutrophils 89 % (50-85)
[2017-04-01 22:20] LABS: Platelet Estimate Normal; Total Cells Counted 100
[2017-04-01] MEDS ORDERED: CALCIUM GLUCONATE 1,000 MG in SODIUM CHLORIDE 0.9% 100 ML IV ONE (22:26)
[2017-04-02] MEDS ORDERED: NALOXONE 0.4 MG/ML VIAL IV ONE ×2 (00:51→01:06)
[2017-04-02] MEDS ORDERED: ALBUMIN 5% 25 GM in PREMIX 1 EACH IV ONE (00:58)
[2017-04-02] MEDS: INSULIN REGULAR 100 UNIT/ML SUBCUT SCH ×3 (01:00→09:48)
[2017-04-02] MEDS ORDERED: SODIUM CHLORIDE 0.9% 1,000 ML IV SCH (01:30)
[2017-04-02 03:40] LABS: Basophils % 0.1 % (0.0-0.8); Hematocrit 26.2 VOL% (42.0-52.0); Hemoglobin 8.5 GM/DL (14.0-18.0); Immature Granulocytes Absolute 0.14 #; Mean Corpuscular HGB Conc 32.4 GM/DL (32-36); Mean Corpuscular Hemoglobin 31 PG (27-34); Mean Corpuscular Volume 94.9 FL (87-102); Mean Platelet Volume 10.1 FL (9.6-12.0); Monocytes # 1.8 10*3/uL (0.11-0.8); Monocytes % 12.8 % (1.7-12.7); Neutrophils # 10.9 10*3/uL (1.4-7.4); Neutrophils % 79.1 % (38.7-73.9); Platelet Count 167 T/CUMM (130-400); Red Blood Count 2.76 MC/CUMM (3.8-5.5); White Blood Count 13.8 T/CUMM (4-12)
[2017-04-02 04:12] LABS: Calcium 7.6 MG/DL (8.5-10.1); Magnesium 2.2 MG/DL (1.8-2.4); Osmolality,Calculated 288.8 MOS/KG (273-304)
[2017-04-02] MEDS ORDERED: FUROSEMIDE 40 MG/4 ML VIAL IV ONE (04:35)
[2017-04-02 05:20] LABS: Platelet Estimate Normal
[2017-04-02] MEDS ORDERED: HALOPERIDOL 5 MG/ML AMP IV ONE ×2 (05:43→06:01)
--- NOTE | 2017-04-02 06:08 | EKG Report ---
Stationary ECG Study [facility] Test Date: 04/02/2017 1:02:57 AM Pat Name: GRETEL TOMPKINS Department: Room: 127 Gender: M Vp Transportation: : 1950 Requested by: Justyn Manning Order Number: [id number] Reading MD: BIB CROCKER Intervals [place] Rate: 94 P: 53 NE: 133 QRS: 21 QRSD: 90 T: -8 QT: 375 QTc: 426 Interpretive Statements SINUS RHYTHM LEFT ATRIAL ABNORMALITY POSSIBLE INFERIOR MYOCARDIAL INFARCTION, OLD Electronically Signed On 04-03-17 10:17:04 CDT by BIB CORCKER [email or web address]
[2017-04-02 06:46] VITALS: BP 116/53
--- NOTE | 2017-04-02 06:52 | Cardiothoracic Progress Note ---
Assessment and Plan (1) NSTEMI (non-ST elevated myocardial infarction) Status: Acute Assessment and plan: 66-year-old male POD2 status post CABG. the patient got delirious last night with agitation. His movement was sluggish on the left side compared to the right side. He was not communicative. I transferred him to the ICU and his labs showed that he has an is having increasing creatinine and almost anuric. I obtained a CT scan of the head which did not show any pathology. The patient is likely to be having delirium due to either hyperuricemia or medication related as he received 10 mg of morphine over the course of the day yesterday. He was stable overnight however due to the current delirious status and hyperventilation I elected to intubate him for protection. I had a multiple discussions with the family and explained to them all the updates in details. Current Visit: Yes Exam (Progress Note) - Constitutional Vitals: Period Temp Pulse Resp BP Sys/Bales Pulse Ox Last 24 Hr 97.3 F-98.8 F 71-102 12-42 80-139/46-87 93-100 Result/EKG - Labs CBC & BMP: 04/02/17 02:31 04/02/17 02:31 Labs: Laboratory Results - last 24 hr 03/30/17 03/31/17 03/31/17 04:46 19:12 20:28 WBC RBC Hgb Hct MCV MCH MCHC RDW Plt Count MPV Neut % (Auto) Lymph % (Auto) [place] % (Auto) Eos % (Auto) Baso % (Auto) Neut # (Auto) Lymph # (Auto) [place] # (Auto) Eos # (Auto) Baso # (Auto) Total Counted Immature Gran % Nucleated RBC % Immature Gran # Segmented Neutrophils Band Neutrophils Lymphocytes Monocytes Myelocytes Nucleated RBCs # Platelet Estimate Anisocytosis ABG pH ABG pCO2 ABG pO2 ABG HCO3 ABG Total CO2 ABG O2 Saturation ABG Base Excess Hemoglobin Hematocrit Potassium Glucose FiO2 Sodium Chloride Carbon Dioxide Anion Gap BUN Creatinine GFR Calculation BUN/Creatinine Ratio POC Glucose 118 H 116 H Calculated Osmolality Calcium Magnesium Crossmatch See Detail 03/31/17 03/31/17 03/31/17 21:40 22:24 23:34 WBC RBC Hgb Hct MCV MCH MCHC RDW Plt Count MPV Neut % (Auto) Lymph % (Auto) [place] % (Auto) Eos % (Auto) Baso % (Auto) Neut # (Auto) Lymph # (Auto) [place] # (Auto) Eos # (Auto) Baso # (Auto) Total Counted Immature Gran % Nucleated RBC % Immature Gran # Segmented Neutrophils Band Neutrophils Lymphocytes Monocytes Myelocytes Nucleated RBCs # Platelet Estimate Anisocytosis ABG pH ABG pCO2 ABG pO2 ABG HCO3 ABG Total CO2 ABG O2 Saturation ABG Base Excess Hemoglobin Hematocrit Potassium Glucose FiO2 Sodium Chloride Carbon Dioxide Anion Gap BUN Creatinine GFR Calculation BUN/Creatinine Ratio POC Glucose 85 119 H 125 H Calculated Osmolality Calcium Magnesium Crossmatch 04/01/17 04/01/17 04/01/17 00:45 01:41 02:57 WBC RBC Hgb Hct MCV MCH MCHC RDW Plt Count MPV Neut % (Auto) Lymph % (Auto) [place] % (Auto) Eos % (Auto) Baso % (Auto) Neut # (Auto) Lymph # (Auto) [place] # (Auto) Eos # (Auto) Baso # (Auto) Total Counted Immature Gran % Nucleated RBC % Immature Gran # Segmented Neutrophils Band Neutrophils Lymphocytes Monocytes Myelocytes Nucleated RBCs # Platelet Estimate Anisocytosis ABG pH ABG pCO2 ABG pO2 ABG HCO3 ABG Total CO2 ABG O2 Saturation ABG Base Excess Hemoglobin Hematocrit Potassium Glucose FiO2 Sodium Chloride Carbon Dioxide Anion Gap BUN Creatinine GFR Calculation BUN/Creatinine Ratio POC Glucose 101 122 H 145 H Calculated Osmolality Calcium Magnesium Crossmatch 04/01/17 04/01/17 04/01/17 04:36 05:20 06:22 WBC RBC Hgb Hct MCV MCH MCHC RDW Plt Count MPV Neut % (Auto) Lymph % (Auto) [place] % (Auto) Eos % (Auto) Baso % (Auto) Neut # (Auto) Lymph # (Auto) [place] # (Auto) Eos # (Auto) Baso # (Auto) Total Counted Immature Gran % Nucleated RBC % Immature Gran # Segmented Neutrophils Band Neutrophils Lymphocytes Monocytes Myelocytes Nucleated RBCs # Platelet Estimate Anisocytosis ABG pH ABG pCO2 ABG pO2 ABG HCO3 ABG Total CO2 ABG O2 Saturation ABG Base Excess Hemoglobin Hematocrit Potassium Glucose FiO2 Sodium Chloride Carbon Dioxide Anion Gap BUN Creatinine GFR Calculation BUN/Creatinine Ratio POC Glucose 132 H 142 H 146 H Calculated Osmolality Calcium Magnesium Crossmatch 04/01/17 04/01/17 04/01/17 07:06 08:00 08:10 WBC RBC Hgb Hct MCV MCH MCHC RDW Plt Count MPV Neut % (Auto) Lymph % (Auto) [place] % (Auto) Eos % (Auto) Baso % (Auto) Neut # (Auto) Lymph # (Auto) [place] # (Auto) Eos # (Auto) Baso # (Auto) Total Counted Immature Gran % Nucleated RBC % Immature Gran # Segmented Neutrophils Band Neutrophils Lymphocytes Monocytes Myelocytes Nucleated RBCs # Platelet Estimate Anisocytosis ABG pH 7.358 ABG pCO2 34.2 L ABG pO2 96.2 H ABG HCO3 19.8 L ABG Total CO2 17.6 L ABG O2 Saturation 97.2 ABG Base Excess -5.6 L Hemoglobin 9.8 L Hematocrit 30.2 L Potassium 4.3 Glucose 103 FiO2 Sodium Chloride Carbon Dioxide Anion Gap BUN Creatinine GFR Calculation BUN/Creatinine Ratio POC Glucose 126 H 101 Calculated Osmolality Calcium Magnesium Crossmatch 04/01/17 04/01/17 04/01/17 11:50 15:02 19:24 WBC RBC Hgb Hct MCV MCH MCHC RDW Plt Count MPV Neut % (Auto) Lymph % (Auto) [place] % (Auto) Eos % (Auto) Baso % (Auto) Neut # (Auto) Lymph # (Auto) [place] # (Auto) Eos # (Auto) Baso # (Auto) Total Counted Immature Gran % Nucleated RBC % Immature Gran # Segmented Neutrophils Band Neutrophils Lymphocytes Monocytes Myelocytes Nucleated RBCs # Platelet Estimate Anisocytosis ABG pH ABG pCO2 ABG pO2 ABG HCO3 ABG Total CO2 ABG O2 Saturation ABG Base Excess Hemoglobin Hematocrit Potassium Glucose FiO2 Sodium Chloride Carbon Dioxide Anion Gap BUN Creatinine GFR Calculation BUN/Creatinine Ratio POC Glucose 118 H 194 H 262 H Calculated Osmolality Calcium Magnesium Crossmatch 04/01/17 04/01/17 04/01/17 21:45 21:48 21:48 WBC 18.2 H D RBC 2.89 L Hgb 9.2 L Hct 27.0 L MCV 93.4 MCH 32 MCHC 34.1 RDW 12.9 Plt Count 188 MPV 9.8 Neut % (Auto) 81.0 H Lymph % (Auto) 4.4 L [place] % (Auto) 13.4 H Eos % (Auto) 0.0 Baso % (Auto) 0.1 Neut # (Auto) 14.7 H Lymph # (Auto) 0.8 L [place] # (Auto) 2.4 H Eos # (Auto) 0.0 Baso # (Auto) 0.0 Total Counted 100 Immature Gran % 1.1 Nucleated RBC % 0.0 Immature Gran # 0.20 Segmented Neutrophils 89 H Band Neutrophils 4 Lymphocytes 3 L Monocytes 3 Myelocytes 1 Nucleated RBCs # 0.00 Platelet Estimate Normal Anisocytosis ABG pH 7.380 ABG pCO2 22.4 L ABG pO2 104.0 H ABG HCO3 16.1 L ABG Total CO2 12.0 L ABG O2 Saturation 98.2 ABG Base Excess -10.5 L Hemoglobin Hematocrit Potassium 5.1 Glucose 203 H FiO2 28.00 Sodium 136 Chloride 105 Carbon Dioxide 15 L Anion Gap 21.1 H BUN 41 H D Creatinine 3.30 H GFR Calculation 29 BUN/Creatinine Ratio 12.00 POC Glucose Calculated Osmolality 287.0 Calcium 7.5 L Magnesium 2.0 Crossmatch 04/01/17 04/02/17 04/02/17 21:48 00:19 02:31 WBC 13.8 H RBC 2.76 L Hgb 8.5 L Hct 26.2 L MCV 94.9 MCH 31 MCHC 32.4 RDW 13.0 Plt Count 167 MPV 10.1 Neut % (Auto) 79.1 H Lymph % (Auto) 7.0 L [place] % (Auto) 12.8 H Eos % (Auto) 0.0 Baso % (Auto) 0.1 Neut # (Auto) 10.9 H Lymph # (Auto) 1.0 L [place] # (Auto) 1.8 H Eos # (Auto) 0.0 Baso # (Auto) 0.0 Total Counted Immature Gran % 1.0 Nucleated RBC % 0.0 Immature Gran # 0.14 Segmented Neutrophils Band Neutrophils Lymphocytes Monocytes Myelocytes Nucleated RBCs # 0.00 Platelet Estimate Normal Anisocytosis ABG pH ABG pCO2 ABG pO2 ABG HCO3 ABG Total CO2 ABG O2 Saturation ABG Base Excess Hemoglobin Hematocrit Potassium Glucose FiO2 Sodium Chloride Carbon Dioxide Anion Gap BUN Creatinine GFR Calculation BUN/Creatinine Ratio POC Glucose 228 H 226 H Calculated Osmolality Calcium Magnesium Crossmatch 04/02/17 04/02/17 02:31 04:48 WBC RBC Hgb Hct MCV MCH MCHC RDW Plt Count MPV Neut % (Auto) Lymph % (Auto) [place] % (Auto) Eos % (Auto) Baso % (Auto) Neut # (Auto) Lymph # (Auto) [place] # (Auto) Eos # (Auto) Baso # (Auto) Total Counted Immature Gran % Nucleated RBC % Immature Gran # Segmented Neutrophils Band Neutrophils Lymphocytes Monocytes Myelocytes Nucleated RBCs # Platelet Estimate Anisocytosis ABG pH ABG pCO2 ABG pO2 ABG HCO3 ABG Total CO2 ABG O2 Saturation ABG Base Excess Hemoglobin Hematocrit Potassium 5.0 Glucose 168 H FiO2 Sodium 137 Chloride 105 Carbon Dioxide 15 L Anion Gap 22.0 H BUN 46 H Creatinine 3.80 H GFR Calculation 25 BUN/Creatinine Ratio 12.00 POC Glucose 199 H Calculated Osmolality 288.8 Calcium 7.6 L Magnesium 2.2 Crossmatch Quality Measures - VTE Contraindication to Pharmacological VTE Prophylaxis: Active Bleeding
[2017-04-02] MEDS ORDERED: ETOMIDATE 20 MG/10 ML VIAL IV ONE ×2 (06:55→07:00)
[2017-04-02] MEDS ORDERED: CALCIUM CHLORIDE 1,000 MG/10 ML SYRINGE IV ONE ×2 (07:00→11:00)
[2017-04-02] MEDS ORDERED: CALCIUM GLUCONATE 1,000 MG/10 ML VIAL IV ONE (07:00)
[2017-04-02] MEDS ORDERED: AMIODARONE 150 MG/3 ML VIAL ONE (07:00)
[2017-04-02] MEDS ORDERED: ATROPINE 1 MG/10 ML SYRINGE ONE ×2 (07:00→11:00)
[2017-04-02] MEDS ORDERED: EPINEPHrine 1 MG/10 ML SYRINGE ONE ×4 (07:00→11:00)
[2017-04-02] MEDS ORDERED: LIDOCAINE 100 MG/5 ML SYRINGE ONE (07:00)
[2017-04-02] MEDS ORDERED: SODIUM BICARBONATE 50 MEQ/50 ML VIAL IV ONE ×2 (07:00→11:00)
[2017-04-02] MEDS ORDERED: ROCURONIUM 100 MG/10 ML VIAL IV ONE (07:00)
[2017-04-02] MEDS ORDERED: SODIUM CHLORIDE 0.9% 100 ML IV ONE (07:02)
[2017-04-02] MEDS ORDERED: EPINEPHrine 1 MG/ML VIAL ONE ×2 (07:18→07:19)
[2017-04-02] MEDS ORDERED: AMIODARONE 450 MG/9 ML VIAL IV ONE (07:26)
[2017-04-02] MEDS ORDERED: PAPAVERINE 60 MG/2 ML VIAL ONE ×2 (07:41→07:43)
[2017-04-02] MEDS ORDERED: TISSUE ADHESIVE 1 EACH APPLICATOR TOP ONE (07:43)
[2017-04-02] MEDS ORDERED: VANCOMYCIN 1,000 MG VIAL ONE (07:44)
[2017-04-02] MEDS ORDERED: ESMOLOL 100 MG/10 ML VIAL IV ONE (07:54)
--- NOTE | 2017-04-02 08:11 | CT Report ---
Referring physician: Justyn Manning MD Exam: CT brain without contrast Date: 04/01/2017 Comparison: 12/18/2009 Reason: Alteration of consciousness, memory loss Technique: Axial images of the head were obtained without the use of contrast. Total DLP was 1025.60 mGy*cm. This exam was initially interpreted by [facility]. Findings: The ventricles are minimally larger in size with no midline displacement. Diffuse atrophy and cerebral hypodensities with chronic appearing left basal ganglia lacunar infarct.. There is no evidence of an acute infarction, recent intracranial hemorrhage or abnormal mass effect. The osseous structures appear intact. The mastoid air cells and visualized paranasal sinuses are clear. Impression: No acute intracranial abnormality is identified. Progressive atrophy and microvascular disease with interval chronic appearing left basal ganglia infarct. The CT exam was performed using one or more of the following dose reduction techniques: Automated exposure control and adjustment of the mA and/or kV according to patient size. PROCEDURE INTERPRETED AT [facility] DEPARTMENT OF RADIOLOGY Final Report Signed by: Dr. Jalyn Adams
[2017-04-02 08:31] LABS: Hematocrit Heart Surgery 20.8 PERCENT (42-52); Hemoglobin Heart Surgery 6.6 G/DL (14.0-18.0); PCO2 Patient Temp Venous 55.3 MM HG; PH Patient Temp Venous 6.934; PO2 Patient Temp Venous 28.6 MM HG; Potassium Heart/CVR 5.2 MMOL/L (3.5-5.1); VBG Base Excess -19.5 MEQ/L (0-4); VBG Oxygen Saturation 18.9 %; VBG PCO2 55.3 MMHG (41-51); VBG PH 6.934; VBG PO2 28.6 MMHG (17-40)
[2017-04-02 08:51] LABS: PCO2 Patient Temp Venous 63.1 MM HG; PH Patient Temp Venous 6.914; PO2 Patient Temp Venous 65.5 MM HG; Potassium Heart/CVR 5.5 MMOL/L (3.5-5.1); VBG Base Excess -18.6 MEQ/L (0-4); VBG HCO3 9.9 MEQ/L (24-28); VBG Oxygen Saturation 74.1 %; VBG PCO2 63.1 MMHG (41-51); VBG PH 6.914; VBG PO2 65.5 MMHG (17-40)
[2017-04-02 08:52] LABS: Hemoglobin Heart Surgery 5.7 G/DL (14.0-18.0)
[2017-04-02] MEDS ORDERED: SODIUM BICARBONATE 50 MEQ/50 ML SYRINGE IV ONE ×2 (09:07→10:10)
[2017-04-02 09:24] LABS: Hematocrit Heart Surgery 23.4 PERCENT (42-52); Hemoglobin Heart Surgery 7.5 G/DL (14.0-18.0); PCO2 Patient Temp Venous 45.8 MM HG; PH Patient Temp Venous 7.09; PO2 Patient Temp Venous 54.8 MM HG; VBG Base Excess -15.2 MEQ/L (0-4); VBG HCO3 12.4 MEQ/L (24-28); VBG Oxygen Saturation 74.9 %; VBG PCO2 45.8 MMHG (41-51); VBG PH 7.09; VBG PO2 54.8 MMHG (17-40)
--- NOTE | 2017-04-02 09:35 | XRay Report ---
Portable chest Date: 04/02/2017 Clinical history: Postop CABG, evaluate for pneumothorax Comparison: 04/01/2017 Technique: Portable AP sitting chest Findings: Persistent cardiomegaly with recent median sternotomy. Removal of the endotracheal tube and nasogastric tube. Removal of the right IJ CVP line with stable introducer and mediastinal chest tubes. Small left pneumothorax which measures 3 mm from the pleural line to the lateral chest wall. Reduced atelectasis/edema at the lung bases with smaller pleural effusions. Impression: Post median sternotomy with removal of the endotracheal tube, nasogastric tube, and CVP line. Tiny left pneumothorax measuring 3 mm from the pleural line to the lateral chest wall. This finding was discussed the patient's nurse, Juanita at 9:30 AM on 04/02/2017. Critical test results PROCEDURE INTERPRETED AT [facility] DEPARTMENT OF RADIOLOGY Final Report Signed by: Dr. Jalyn Adams
[2017-04-02] MEDS: CHLORHEXIDINE 0.12% ORAL RINSE 60 ML BOTTLE SWISH/SPIT SCH (09:48)
[2017-04-02] MEDS: METOPROLOL TARTRATE 25 MG TABLET PO SCH (09:48)
[2017-04-02] MEDS: FUROSEMIDE 40 MG TABLET PO SCH (09:48)
[2017-04-02] MEDS: ASPIRIN EC 325 MG TABLET PO SCH (09:48)
[2017-04-02] MEDS: MELOXICAM 7.5 MG TABLET PO SCH (09:48)
[2017-04-02] MEDS ORDERED: CEFUROXIME 1,500 MG VIAL ONE (10:06)
[2017-04-02] MEDS ORDERED: PROTAMINE SULFATE 250 MG/25 ML VIAL IV ONE (10:10)
[2017-04-02] MEDS ORDERED: DEXTROSE 5% KCL 20 MEQ 20 MEQ/1,000 ML BAG IV ONE (10:10)
[2017-04-02] MEDS ORDERED: HEPARIN 10,000 UNIT/10 ML VIAL ONE (10:10)
[2017-04-02] MEDS ORDERED: ALBUMIN 25% 25 GM/100 ML VIAL IV ONE (10:10)
[2017-04-02] MEDS ORDERED: MAGNESIUM SULFATE 1 GM/2 ML VIAL ONE (10:10)
[2017-04-02] MEDS ORDERED: PHENYLEPHRINE DRIP 20 MG/250 ML PREMIX IV ONE (10:10)
[2017-04-02] MEDS ORDERED: PROTAMINE SULFATE 50 MG/5 ML VIAL IV ONE (10:11)
[2017-04-02] MEDS ORDERED: methylPREDNISolone SOD SUC 1,000 MG/8 ML VIAL ONE (10:11)
[2017-04-02] MEDS ORDERED: MANNITOL 12.5 GM/50 ML VIAL IV ONE (10:11)
[2017-04-02] MEDS ORDERED: FUROSEMIDE 20 MG/2 ML VIAL ONE (10:11)
[2017-04-02 10:18] LABS: ABG Base Excess -8.2 MMOL/L (-2.5-2.5); ABG HCO3 17.8 MMOL/L (20-26); ABG Oxygen Saturation 99.7 % (95-100); ABG TCO2 17.4 MMOL/L (23-27); Glucose Heart Surgery 48 MG/DL (74-106); Hematocrit Heart Surgery 25.4 PERCENT (42-52); Hemoglobin Heart Surgery 8.2 G/DL (14.0-18.0); Ionized Calcium Arterial 1.79 MMOL/L (1.21-1.46); Patient Temperature 37 CELCIUS; Potassium Heart/CVR 5.3 MMOL/L (3.5-5.1); Sodium Heart/CVR 150 MMOL/L (135-145)
--- NOTE | 2017-04-02 10:42 | Event Note ---
At around 730 after we decided to proceed with intubating the patient for increased work of breathing although he was hemodynamically stable at this point on after intubation he was noted to get hypotensive and that progressed into ventricular fibrillation. I proceeded with ACLS protocol and he was given multiple shocks up to 300 J. I then proceeded after that with opening the chest at bedside after repair of the chest. The heart had pulseless electrical activity. Cardiac massage ensued and the OR was called. Multiple doses of bicarb, calcium, epinephrine, atropine were given. The patient was then transferred to the OR while cardiac massage was ongoing. There were transient periods where the patient would regain cardiac activity for a while and he would lose it again..
--- NOTE | 2017-04-02 10:47 | Operative Note ---
Date of procedure: 04/02/17 Pre-op diagnosis: Cardiac arrest Post-op diagnosis: same Procedure: 1 mediastinal exploration 2 institution of cardia pulmonary bypass 3 insertion of intra-aortic balloon pump 4 weaning off cardiopulmonary bypass Findings: Severe right heart failure, Increased pulmonary artery pressure, patent GEORGE to LAD, saphenous vein graft to obtuse marginal, saphenous vein graft to the PDA grafts with good pulsatile flow. Minimal amount of pericardial effusion. Details of the procedure: The patient was brought into the OR while cardiac massage was ongoing by me. The chest was reopened in the ICU at bedside. The chest was prepped and draped while I was given cardiac massage. The heart regained some cardiac activity in the OR after getting some cardiac function. Upon evaluation the right heart was in severe failure and distended. I then proceeded with cannulating the patient in the ascending aorta and the right atrium. We went on pump. There was some activity in the heart. I arrested the heart for the ensuing 25 minutes. I then proceeded with slowly weaning from the pump. During that time I inserted intra-aortic balloon pump. During pulsatile flow I confirmed very good flow and the GEORGE graft, saphenous vein graft to the OM, saphenous vein graft to the PDA. There will easily palpable pulse in all grafts. There is no obvious aortic dissection noted. However again the pulmonary artery pressure and the right ventricular pressure were noted to be very high. I completed the weaning of the pump and he was given protamine. He was already on balloon pump at this point. However upon closing the chest he was noted to lose his cardiac activity again. At this point I felt that it is very unlikely that he would survive this event. He was pronounced at 1025. Surgeon / Physician: Justyn Manning Search Director: Tio Shields Condition: Results - Labs CBC & BMP: 04/02/17 10:12 04/02/17 02:31 Discharge Plan - Discharge Medications No Action Omeprazole 20 mg PO DAILY Rivaroxaban [Xarelto] 20 mg PO DAILY Meloxicam [Meloxicam] 7.5 mg PO BID Lovastatin [Lovastatin] 10 mg PO DAILY W/SUPPER Lisinopril [Lisinopril] 10 mg PO DAILY Hydrocodone/Acetaminophen [Hydrocodon-Acetaminoph 7.5-325] 7.5 mg PO Q4H PRN PRN Reason: Pain Mild To Moderate (1-7) Aspirin [Ecotrin] 81 mg PO DAILY Insulin NPH/Regular 70/30 [HumuLIN 70/30] 46 units SUBCUT AC BREAKFAST Insulin NPH/Regular 70/30 [HumuLIN 70/30] 36 units SUBCUT QPM Meclizine [Antivert] 25 mg PO DAILY PRN PRN Reason: Dizziness Carvedilol [Carvedilol] 3.125 mg PO BID - Follow Up or Referral - Forms/Instructions
[2017-04-02] MEDS ORDERED: LIDOCAINE 1% 5 ML VIAL ONE (11:00)
[2017-04-02] MEDS ORDERED: PHENYLEPHRINE 1 MG/10 ML SYRINGE IV ONE (11:00)
--- NOTE | 2017-04-02 15:24 | Anesthesia Procedures ---
Anesthesia Procedures - Intubation Time out performed intubation: Yes Sedative: Etomidate Mg given sedative: 20 Paralytic: Rocuronium Mg given paralytic: 50 Laryngoscope: Paul ET Tube Size: 7.5 ET Tube Uncuffed: No Tube Secured Depth (cm): 22 Tube Secured Location: lips Tube Placement Confirmation: visualized tube passing through cords, equal breath sounds bilaterally, confirmation detector color change Patient tolerated procedure intubation: other Intubation Complications: none Additional Commets: Called to CCU at [address] Manning at bedside. Pt with labored, spontaneous ventilations. Etomidate 20mg IV, Zemuron 50mg IV. atraumatic intubation with 7.5 ett, Mac 3 without complications BBS +/=, co2 color change Pt with SBP 60's post-intubation. Dante given. Epi given Pt progressed into Ventricular arrythmias without pulse. CPR initiated ACLS protocol. See nurses notes for medications and code sheet continued to ventilate patient and proceeded to OR
--- NOTE | 2017-04-02 15:34 | Anesthesia Post-Op ---
Anesthesia Post OP - Post Ansesthetic Evaluation Patient seen in post op: No Resp: other CV: other Mental: other Temp: other [id number]: other Nausea and Vomiting: other (pt in or) Pain: other
--- NOTE | 2017-04-03 09:50 | Discharge Summary ---
Hospital Course - Hospital Course Hospital Course: The patient was transferred here from [place] for urgent CABG due to severe coronary artery disease. The patient was maintained here until the day of the procedure. The patient had CABG and it went well without any problems. Details of this proceeded us on the different note. He was admitted to the ICU for observation. He did well he was hypertensive during his early postoperative hours requiring sodium nitroprusside to control his blood pressure. He was extubated within 24 hours after surgery. Postoperative day 1 he was doing well without any problems initially. He was transferred to telemetry in good condition. Later that night he developed confusion and agitation. I transferred him down to the ICU for close observation. CT brain was negative for any acute pathology. His lab work showed good H&H and electrolytes except for a rising creatinine and he became anuric. His EKG was normal. Of note he did have early stage renal failure preoperatively. He was hyperventilating overnight and postoperative day 2 I was concerned that he is having increased work of breathing so I decided to proceed to intubate him. Once intubated unfortunately he had a code event. Details of the code event on a different note. He was appropriately coded and I opened his chest at bedside in the ICU for cardiac massage. There was severe right ventricular strain. He regained her activity for a while at which point I transferred him to the OR. Details of this are in different note. Unfortunately the resuscitative efforts were unsuccessful and the patient at 1025 on April 02. During that entire time the the family were being updated very regularly and everything was explained to them in details. - Time spent with patient Time with patient DS: Greater than 30 minutes Diagnosis - Discharge Diagnosis (1) NSTEMI (non-ST elevated myocardial infarction) Status: Acute Discharge Plan - Discharge Data Disposition: - Discharge Medications No Action Omeprazole 20 mg PO DAILY Rivaroxaban [Xarelto] 20 mg PO DAILY Meloxicam [Meloxicam] 7.5 mg PO BID Lovastatin [Lovastatin] 10 mg PO DAILY W/SUPPER Lisinopril [Lisinopril] 10 mg PO DAILY Hydrocodone/Acetaminophen [Hydrocodon-Acetaminoph 7.5-325] 7.5 mg PO Q4H PRN PRN Reason: Pain Mild To Moderate (1-7) Aspirin [Ecotrin] 81 mg PO DAILY Insulin NPH/Regular 70/30 [HumuLIN 70/30] 46 units SUBCUT AC BREAKFAST Insulin NPH/Regular 70/30 [HumuLIN 70/30] 36 units SUBCUT QPM Meclizine [Antivert] 25 mg PO DAILY PRN PRN Reason: Dizziness Carvedilol [Carvedilol] 3.125 mg PO BID - Follow Up or Referral - Forms/Instructions Discharge Results Procedures and tests throughout hospitalization: Pending Orders 03/30/17 04:46 Fresh Frozen Plasma IN AM Red Blood Cells Leuko Red IN AM Single Donor Platelets IN AM Type and Screen Routine 04/01/17 21:44 MRSA Surveillence, Inf Control Routine 04/02/17 Fresh Frozen Plasma Routine Red Blood Cells Leuko Red Routine Single Donor Platelets Routine Type and Screen Routine Labs on day of discharge: Labs from last 24 hours 04/02/17 04/02/17 04/02/17 Unknown 10:15 10:12 Plt Count 55 L D Patient Temperature 37 ABG pH 7.260 L ABG pH at Pt Temp 7.260 ABG pCO2 41.0 ABG pCO2 at Pt Temp 41.0 ABG pO2 257.0 H ABG pO2 at Pt Temp 257.0 ABG HCO3 17.8 L ABG Total CO2 17.4 L ABG O2 Saturation 99.7 ABG Base Excess -8.2 L ABG Sodium 150 H Hemoglobin 8.2 L Hematocrit 25.4 L Potassium 5.3 H Glucose 48 L Ionized Calcium 1.79 H Blood Type B POSITIVE Antibody Screen Negative Crossmatch See Detail Preliminary micro results at discharge 04/01/17 21:44 MRSA Surveillance Culture - Preliminary Nares - Both Nares (Mrsa screen) No MRSA isolated. DS: Provider Date of admission: 03/28/17 16:38 Primary care physician: Justyn Manning Attending physician on admission: Justyn Manning Consults: 03/28/17 11:39 Consult to Dietitian [CONS] Routine Reason for Dietitian: Other Consult Comment: low salt, low cholesterol, diet 03/31/17 12:29 Consult to Occupational Therapy [CONS] Routine Reason for Occupational Therapy: Evaluate and Treat Start Therapy: Tomorrow Consult to Physical Therapy [CONS] Routine Reason for Physical Therapy: Evaluate and Treat Start Therapy: Tomorrow 04/02/17 06:49 Consult to Physician [CONS] Routine Comment: Consulting Provider: Tristan Mai Discharging clinician: Justyn Manning Expected date of discharge: 04/02/17
--- NOTE | 2017-04-04 07:02 | Physician Query Form ---
CLICK EDIT DOCUMENT TO SELECT QUERY ANSWER --> OK --> SIGN Daniela Navarro RN, CCDS Certified Clinical Deputy Commonwealth'S Attorney W) [phone] (f) [phone] [email or web address] PROVIDERS: Make your selection(s) from the choices in EACH section by typing an "x" and enter comments in the comment section. Please use your independent medical judgment in providing your response. This request does not imply that any particular answer is desired or expected. CLINICAL INDICATORS: (Providers should not edit this section) "His lab work showed good H&H and electrolytes except for a rising creatinine and he became anuric" ---- creatinine increased to 3.80# from 1.60 from the Clarify which of the following most accurately represents the patient's renal status: ( ) Acute kidney injury (non-traumatic) ( ) Acute renal failure ( x) Acute renal failure with underlying Chronic Kidney Disease (CKD) - please provide stage below ( ) Acute renal failure with pathological renal lesion ( ) Acute renal failure with necrosis ( ) tubular ( ) medullary ( ) cortical ( ) CKD - please provide stage below ( ) End Stage Renal Disease ( ) Acute interstitial nephritis ( ) Hepatorenal syndrome ( ) Other, please specify: ( ) Clinically unable to determine Chronic Kidney Disease Stages Source: National Kidney Disease Foundation ( ) Stage I (eGFR > or = 90) ( ) Stage II (eGFR 60 - 89) ( x) Stage III (eGFR 30 - 59) ( ) Stage IV (eGFR 15 - 29) ( ) Stage V (eGFR < 15 or dialysis) COMMENTS: PLEASE ALSO DOCUMENT RESPONSE IN PROGRESS NOTES AND/OR DISCHARGE SUMMARY Use of terms such as suspected, likely, or probable (associated with a specific diagnosis that is being evaluated, monitored, or treated as if it exists) are acceptable and can be restated in the discharge summary if not ruled out. MTDD
--- NOTE | 2017-04-04 07:03 | Physician Query Form ---
CLICK EDIT DOCUMENT TO SELECT QUERY ANSWER --> OK --> SIGN Daniela Navarro RN, CCDS Certified Clinical Outcome Analyst W) [phone] (f) [phone] [email or web address] PROVIDERS: Make your selection(s) from the choices in EACH section by typing an "x" and enter comments in the comment section. Please use your independent medical judgment in providing your response. This request does not imply that any particular answer is desired or expected. CLINICAL INDICATORS: (Providers should not edit this section) "He was transferred to telemetry in good condition. Later that night he developed confusion and agitation. I transferred him down to the ICU for close observation. CT brain was negative for any acute pathology" ACUITY: ( ) Acute ( ) Acute on Chronic ( ) Chronic ( ) Clinically unable to determine NATURE: ( x) Delirium due to general medical condition ( ) Dementia ( ) Encephalopathy ( ) Unconscious ( ) Transient level of awareness ( ) Comatose ( ) Locked-in State ( ) Persistent Vegetative State ( ) Other, please specify: ( ) Clinically unable to determine Please indicate the underlying cause of the altered mental status (CHECK ALL THAT APPLY): ( ) Baseline dementia ( ) Alzheimer's disease ( ) Parkinson's disease ( ) Lewy body dementia ( ) Acute stroke ( ) Late effect of stroke ( ) Reactive (from emotional stress, psychological trauma) (x ) Due to narcotics/other drugs (x ) Post procedural delirium ( ) Transient ischemic attack ( ) Generalized cerebral edema ( ) Normal pressure hydrocephalus ( ) Psychiatric illness ( ) Other, please specify: ( ) Clinically unable to determine Please indicate if there is an infection, sepsis, dehydration or specific organ failure that is causing the dementia. Be specific with clarifying the relationship between that process and the mental status change. COMMENTS: PLEASE ALSO DOCUMENT RESPONSE IN PROGRESS NOTES AND/OR DISCHARGE SUMMARY Use of terms such as suspected, likely, or probable (associated with a specific diagnosis that is being evaluated, monitored, or treated as if it exists) are acceptable and can be restated in the discharge summary if not ruled out. MTDD
--- NOTE | 2017-04-04 07:04 | Physician Query Form ---
CLICK EDIT DOCUMENT TO SELECT QUERY ANSWER --> OK --> SIGN Daniela Navarro RN, CCDS Certified Clinical Admissions Consultant W) [phone] (f) [phone] [email or web address]: Make your selection(s) from the choices in EACH section by typing an "x" and enter comments in the comment section. Please use your independent medical judgment in providing your response. This request does not imply that any particular answer is desired or expected. CLINICAL INDICATORS: (Providers should not edit this section) "He was hyperventilating overnight and postoperative day 2 I was concerned that he is having increased work of breathing so I decided to proceed to intubate him" If possible, please further clarify the type and acuity of respiratory diagnosis : ACUITY: ( x) Acute ( ) Chronic ( ) Acute on Chronic TYPE: ( ) Respiratory failure with hypoxia ( ) Respiratory failure with hypercapnia ( ) Respiratory Arrest ( ) Postprocedural/postoperative respiratory failure ( x) Respiratory Insufficiency ( ) ARDS (Adult/Acute Respiratory Distress Syndrome) ( ) Other, please specify: ( ) Clinically unable to determine Recognized criteria for respiratory failure PH <7.35 or >7.45 PO2 <60 PCO2 >50 RR >24 O2 Sat <90% on RA or <95% on O2 Use of accessory muscles Unable to speak in full sentences Intubation is not required COMMENTS: PLEASE ALSO DOCUMENT RESPONSE IN PROGRESS NOTES AND/OR DISCHARGE SUMMARY Use of terms such as suspected, likely, or probable (associated with a specific diagnosis that is being evaluated, monitored, or treated as if it exists) are acceptable and can be restated in the discharge summary if not ruled out. MTDD
== END 2017-04-02 10:25 | disposition expired | DRG 236 ==
LOC: N.ICU 16:38 → N.TELES 03-29 13:18 → N.CVR 03-31 11:55 → N.ICU 04-01 11:38 → N.TELES 04-01 15:03 → N.CC 04-01 21:36
PROVIDERS: ADMIT Thoracic Surgery (Cardiothoracic Vascular Surgery); ATTEND Thoracic Surgery (Cardiothoracic Vascular Surgery)